=== PATIENT | male | born 1965 | race African-American/Black ===

== ENCOUNTER 2019-12-16 13:33 | Inpatient (IN) | payer OTHER ==
[2019-12-16] VITALS (7 sets, daily range): BP systolic 86–121; BP diastolic 41–62
[~2019-12-16] VITALS: Ht 177.8 cm; Wt 69.9 kg
--- NOTE | 2019-12-16 13:43 | NUR ---
PT BIB [facility] C/O ALTERED AND REFUSING DIALYSIS X 3 DAYS, PT IS AAOX1, NOT IN RESPIRATORY DISTRESS, HOOKED TO LAUNCH LEADER, KEPT RESTED AND COMFORTABLE, WILL CONTINUE TO MONITOR.
--- NOTE | 2019-12-16 14:00 | NUR ---
IV LINE ESTABLISHED, BLOOD DRAWN AND SENT TO LAB.
--- NOTE | 2019-12-16 14:10 | NUR ---
SEEN AND EXAMINED BY .
[2019-12-16] MEDS ORDERED: ONDANSETRON HCL/PF 4 MG/2 ML VIAL ONE (14:20)
--- NOTE | 2019-12-16 14:28 | NUR ---
ORGANIZATIONAL DEVELOPMENT DIRECTOR AT BEDSIDE FOR XRAY.
[2019-12-16] MEDS ORDERED: ONDANSETRON HCL/PF 4 MG/2 ML VIAL IVP ONE (14:30)
[2019-12-16 14:39] LABS: BASOPHILS # (AUTO) 0.1 /CMM (0.0-0.2); BASOPHILS % (AUTO) 0.4 % (0.0-2.0); EOSINOPHILS % (AUTO) 0.1 % (0.0-6.0); HEMATOCRIT 34 % (39-51); HEMOGLOBIN 10.3 g/dL (13.5-17.5); LYMPHOCYTES % (AUTO) 7.7 % (20.0-44.0); MEAN CORPUSCULAR HGB CONC 30 g/dl (31.0-36.0); MEAN CORPUSCULAR VOLUME 74 fL (80-96); MONOCYTES # (AUTO) 1.2 /CMM (0.1-1.30); MONOCYTES % (AUTO) 9.6 % (2.0-12.0); NEUTROPHILS # (AUTO) 10.5 /CMM (1.8-8.9); NEUTROPHILS % (AUTO) 82.2 % (43.0-81.0); PLATELET COUNT (AUTO) 211 /CMM (150-450); RED BLOOD CELL COUNT(AUTO) 4.61 MIL/uL (4.5-6.0); WHITE BLOOD COUNT (AUTO) 12.8 K/uL (4.3-11.0)
[2019-12-16 14:52] LABS: ALBUMIN 3.3 g/dL (3.4-5.0); BILIRUBIN,DIRECT 0.3 mg/dL (0.0-0.2); BILIRUBIN,TOTAL 0.6 mg/dL (0.2-1.0); TOTAL PROTEIN, SERUM 8.5 g/dL (6.4-8.2)
[2019-12-16 14:58] LABS: CREATININE 21.3 mg/dL (0.6-1.3); POTASSIUM 6.4 mmol/L (3.5-5.1)
[2019-12-16] MEDS ORDERED: SODIUM BICARBONATE SYR 50 MEQ/50 ML DISP.SYRIN IV ONE (15:00)
[2019-12-16] MEDS ORDERED: CALCIUM CHLORIDE 1,000 MG/10 ML DISP.SYRIN IV ONE (15:00)
[2019-12-16] MEDS ORDERED: ALBUTEROL FS 2.5 MG/3 ML VIAL.NEB NEB ONE (15:00)
[2019-12-16] MEDS ORDERED: ACETAMINOPHEN 650 MG/SUPP.RECT RC ONE ×3 (15:13→15:30)
[2019-12-16] MEDS ORDERED: CALCIUM CHLORIDE 1,000 MG/10 ML DISP.SYRIN ONE (15:15)
--- NOTE | 2019-12-16 15:26 | NUR ---
CALLED [facility]. [facility] GROOM WAS PAGED
[2019-12-16] MEDS ORDERED: PIPERACILLIN /TAZOBACTAM 3.375 G in IV D5W 50 ML IV ONE (15:30)
[2019-12-16] MEDS ORDERED: VANCOMYCIN 1 GM in IV D5W 250 ML IV ONE (15:30)
[2019-12-16] MEDS ORDERED: IV NS 0.9% 500 ML BAG IV ONE (15:30)
[2019-12-16] MEDS ORDERED: ALBUTEROL FS 2.5 MG/3 ML VIAL.NEB ONE (15:32)
--- NOTE | 2019-12-16 15:37 | NUR ---
CALLED DR MALLORY FOR CONSULT
[2019-12-16] MEDS ORDERED: PANT40TA2 PO (15:42)
[2019-12-16] MEDS ORDERED: ASCO500T9 PO (15:42)
[2019-12-16] MEDS ORDERED: GLUC1KIT IM (15:42)
[2019-12-16] MEDS ORDERED: GABA-532 PO (15:42)
[2019-12-16] MEDS ORDERED: SEVE800T8 PO (15:42)
[2019-12-16] MEDS ORDERED: DOCU-141 PO (15:42)
[2019-12-16] MEDS ORDERED: TRAM50TA2 PO (15:42)
[2019-12-16] MEDS ORDERED: PENT400T17 PO (15:42)
[2019-12-16] MEDS ORDERED: HYDR4TAB4 PO (15:42)
[2019-12-16] MEDS ORDERED: INSU100I4 SQ (15:42)
[2019-12-16] MEDS ORDERED: ACET-868 PO (15:42)
[2019-12-16] MEDS ORDERED: METO25TA20 PO (15:42)
[2019-12-16] MEDS ORDERED: INSU100I19 SQ (15:42)
[2019-12-16] MEDS ORDERED: FOLI0.8T2 PO (15:42)
[2019-12-16] MEDS ORDERED: ASPI-1152 PO (15:42)
[2019-12-16] MEDS ORDERED: ACET-2605 PO ×2 (15:42)
[2019-12-16] MEDS ORDERED: SITA50TA PO (15:42)
[2019-12-16] MEDS ORDERED: LISI-603 PO (15:42)
[2019-12-16] MEDS ORDERED: POLY17PO4 PO (15:42)
[2019-12-16] MEDS ORDERED: ZINC1CAP2 PO (15:42)
[2019-12-16] MEDS ORDERED: FURO-144 PO (15:42)
[2019-12-16] MEDS ORDERED: NA P133E RC (15:42)
[2019-12-16] MEDS ORDERED: BISA10SU11 RC (15:42)
[2019-12-16 15:48] LABS: BAND % (MANUAL) 13 % (0.0-5.0); LYMPHOCYTES % (MANUAL) 10 % (16-48); MONOCYTES % (MANUAL) 6 % (0-11.0); MYELOCYTES % 1 % (0-0); NEUTROPHILS % (MANUAL) 70 (42-76)
--- NOTE | 2019-12-16 15:51 | NUR ---
CALLED [facility] FOR BED
--- NOTE | 2019-12-16 16:58 | NUR ---
CALLED FOR ICU BED
[2019-12-16] MEDS ORDERED: ACETAMINOPHEN 325 MG TABLET PO PRN (17:00)
[2019-12-16] MEDS: METOPROLOL TARTRATE 25 MG TABLET PO SCH (17:00)
[2019-12-16] MEDS ORDERED: ZOLPIDEM TARTRATE 5 MG TABLET PO PRN (17:00)
[2019-12-16] MEDS ORDERED: BISACODYL SUPP (10 MG) 10 MG/SUPP.RECT SUPP.RECT RC PRN (17:00)
[2019-12-16] MEDS: SEVELAMER CARBONATE 800 MG TABLET PO SCH (17:00)
[2019-12-16] MEDS ORDERED: NA PHOS,M-B/NA PHOS,DI-BA 1 EA ENEMA RC PRN (17:00)
[2019-12-16] MEDS ORDERED: MAG HYDROX/AL HYDROX/SIMETH 30 ML UDC PO PRN (17:00)
[2019-12-16] MEDS ORDERED: Z GUARD REMEDY 2 OZ OINT TP PRN (17:00)
[2019-12-16] MEDS ORDERED: MAGNESIUM HYDROXIDE 30 ML UDC PO PRN (17:00)
[2019-12-16] MEDS ORDERED: ONDANSETRON HCL/PF 4 MG/2 ML VIAL IVP PRN (17:00)
[2019-12-16] MEDS ORDERED: TRAMADOL HCL 50 MG TABLET PO PRN (17:00)
--- NOTE | 2019-12-16 17:33 | NUR ---
REPORT GIVEN TO NEDA HOOK FOR LIAN.
--- NOTE | 2019-12-16 17:40 | NUR ---
OFFICE PROFESSIONALINTERMODAL OWNER OPERATOR TRUCK DRIVER NOTE RECEIVED REPORT FROM ER NURSE BLAKE.PATIENT ADMITTING TO ICU FOR [facility] SEPSIS .PATIENT RECEIVED VIA GURNEY.AXOX1 WITH CONFUSION.ON ROOM AIR SATURATING LOW 90'S AND HIGH 80'S.PLACED ON O2 4L VIA NASAL CANULA.SATURATING 98%.IV ON RAC ,RU CHEST HD CATH.DEMIAN AV FISTULA.VERY WEAK BRUIT.SUPRAPUBIC SPRING CATH DRAINING WELL.NO C/O CHEST PAIN.ON TELE MONITOR ST HR 118.BED IS LOW AND LOW POSITION. CALL LIGHT IN REACH.BED ALARM ON.SRX3.WILL CONTINUE TO MONITOR.
[2019-12-16] MEDS ORDERED: FEE PK DOSING 1 MIN EA MC ONE (17:53)
--- NOTE | 2019-12-16 18:15 | NUR ---
WAFER CUTTER NOTE FAXED HEPARIN [facility] PROTOCOL TO PHARMACY.SPOKE TO BOWEN.VERIFIED.TO START BOLUS ONCE DRIP HERE.
[2019-12-16] MEDS: GABAPENTIN 100 MG CAPSULE PO SCH (18:25)
[2019-12-16] MEDS: ASCORBIC ACID 500 MG TABLET PO SCH (18:25)
[2019-12-16] MEDS: BLOOD SUGAR DIAGNOSTIC 1 EACH STRIP VI SCH (18:27)
[2019-12-16] MEDS ORDERED: HEPARIN SODIUM, PORCINE 5000 UNITS/1 ML VIAL IV ONE (19:00)
--- NOTE | 2019-12-16 19:10 | NUR ---
HYDRAULIC LIFT DRIVER CLOSING NOTE ENDORSED TO PM [id number] FOR LIAN.VITAL SIGNS STABLE.TO START HEPARIN DRIP.
[2019-12-16] MEDS: HEPARIN INFUSION/D5W 500 ML IV PRN (19:59)
--- NOTE | 2019-12-16 20:00 | NUR ---
INITIAL ECHOCARDIOGRAM SHOWED EF 30%~. INFORMED RN OF PRELIMINARY RESULTS.
[2019-12-16] MEDS: INSULIN GLARGINE, 100 UNIT/ML CARTRIDGE SQ SCH (21:00)
[2019-12-17] VITALS (32 sets, daily range): BP systolic 80–188; BP diastolic 34–135
--- NOTE | 2019-12-17 00:30 | NUR ---
ICU/RN IRIS GALLAGHER ABOUT PATIENT LOW BP AT 75/61 DR ORDERED 250ML IV BOLUS TO BE GIVEN WILL ADMINISTER AND WILL CONTINUE TO MONITOR
[2019-12-17] MEDS ORDERED: IV NS 0.9% 250 ML IV ONE (01:00)
[2019-12-17] MEDS: PIPERACILLIN /TAZOBACTAM 2.25 G in IV D5W 50 ML IV SCH ×3 (01:28→15:06)
[2019-12-17] MEDS: ACETAMINOPHEN 325 MG TABLET PO PRN ×2 (01:29→12:35)
[2019-12-17] MEDS: DOCUSATE SODIUM 100 MG CAPSULE PO SCH ×2 (01:29→22:22)
[2019-12-17] MEDS: BLOOD SUGAR DIAGNOSTIC 1 EACH STRIP VI SCH ×5 (01:39→22:22)
[2019-12-17 02:53] LABS: BASOPHILS # (AUTO) 0.1 /CMM (0.0-0.2); BASOPHILS % (AUTO) 0.6 % (0.0-2.0); EOSINOPHILS % (AUTO) 0.2 % (0.0-6.0); HEMATOCRIT 29 % (39-51); HEMOGLOBIN 8.8 g/dL (13.5-17.5); LYMPHOCYTES # (AUTO) 1.1 /CMM (0.8-4.8); MEAN CORPUSCULAR HGB CONC 31 g/dl (31.0-36.0); MEAN CORPUSCULAR VOLUME 73 fL (80-96); MONOCYTES # (AUTO) 2.2 /CMM (0.1-1.30); MONOCYTES % (AUTO) 15.9 % (2.0-12.0); NEUTROPHILS # (AUTO) 10.5 /CMM (1.8-8.9); NEUTROPHILS % (AUTO) 75.3 % (43.0-81.0); PLATELET COUNT (AUTO) 182 /CMM (150-450); RED BLOOD CELL COUNT(AUTO) 3.91 MIL/uL (4.5-6.0)
[2019-12-17 03:02] LABS: CALCIUM, SERUM 9.8 mg/dL (8.5-10.1); PHOSPHORUS 5.8 mg/dL (2.5-4.9)
[2019-12-17 03:17] LABS: CREATININE 20.1 mg/dL (0.6-1.3); POTASSIUM 6.4 mmol/L (3.5-5.1)
[2019-12-17] MEDS ORDERED: SODIUM POLYSTYRENE SULFONATE 15 G/60 ML BOTTLE PO ONE (04:00)
--- NOTE | 2019-12-17 04:00 | NUR ---
ICU/NOTE PAIGED DR. GALLAGHER R&D LAB TECHNICIAN ABOUT CRITICAL LABS OF POTASSIUM OF 6.4. ORDERED 30MG OF KAYAXELATE. READ BACK PERFORMED. WILL CONTINUE TO MONITOR.
[2019-12-17] MEDS ORDERED: SODIUM POLYSTYRENE SULF. PWD 15 GM UDC PO ONE (04:30)
[2019-12-17 04:49] LABS: BAND % (MANUAL) 4 % (0.0-5.0); EOSINOPHILS % (MANUAL) 1 % (0-4); LYMPHOCYTES % (MANUAL) 12 % (16-48); MONOCYTES % (MANUAL) 7 % (0-11.0); NEUTROPHILS % (MANUAL) 76 (42-76)
[2019-12-17] MEDS ORDERED: SODIUM POLYSTYRENE SULFONATE 15 G/60 ML BOTTLE ONE (05:54)
--- NOTE | 2019-12-17 07:05 | NUR ---
ICU/RN PAIGED NEPHRO SPECIALIST. ANGELA PER DR. SWIFT STAT DIALYSIS ON PATIENT. AWAITING CALL BACK. WILL ENDORSE TO MORNING SHIFT NURSE.
--- NOTE | 2019-12-17 07:19 | NUR ---
ICU/NOTE SPOKE TO DR. DOUGHERTY, WILL CONSULT PATIENT FOR STAT DYALISIS.
--- NOTE | 2019-12-17 07:20 | NUR ---
ICU/RN RECEIVED PATIENT A/O X2. PATIENT IS ALERT AND ABLE TO STATE FIRST AND LAST NAME. PATIENT IS ON 4L OF O2 SATURATING AT 95% WITH NO COMPLAINT OF ANY SOB. PATIENT ON THE MONITOR SHOWS SINUS TACHY WITH NO DISTRESS. PATIENT HAS A RUCW ACCESS FOR HD WITH NO SIGN OF BLEEDING, AN MARINO FISTULA, AND A RAC #20 PATENT AND FLUSHED. PATIENT DOES NOT COMPLAIN OF ANY PAIN. PATIENT IS NON AMBULATORY. PATIENT IS TO START ON HEPARING DRIP PER ACS PROTOCOL STAT. ALL SAFETY PRECAUTIONS HAVE BEEN APPLIED. WILL CONTINUE TO MONITOR PATIENT THROUGHOUT SHIFT. Addendum: 12/17/19 at 0725 by ADRIAN SCHMITZ RN TIME ADJUSTED TO 12/16/19 AT 1925
--- NOTE | 2019-12-17 07:25 | NUR ---
ICU/RN CLOSING NOTE PATIENT IN BED WITH NO SIGN OF ANY DISTRESS, PATIENT IS A/O X3 ABLE TO STATE FIRST AND LAST NAME. PATIENT IS ON 4L OF O2 SATURATING AT 96%. PATIENT IS SINUS TACHY WITH HR IN THE 100'S. DOES NOT COMPLAIN OF ANY PAIN. PATIENT CONTINUES TO BE ON HEPARIN DRIP RUNNING AT 20ML (1000 UNITS)/HR PER ACS PROTOCOL. ALL SAFETY PRECAUTIONS APPLIED. ENDORSED PATIENT TO MORNING SHIFT NURSE FOR LIAN.
[2019-12-17] MEDS: PANTOPRAZOLE 40 MG TABLET.DR PO SCH (07:46)
[2019-12-17] MEDS: PENTOXIFYLLINE 400 MG TABLET.SA PO SCH (08:16)
[2019-12-17] MEDS: GABAPENTIN 100 MG CAPSULE PO SCH ×2 (08:16→17:09)
[2019-12-17] MEDS: POLYETHYLENE GLYCOL 3350 17 GM POWD.PACK PO SCH (08:16)
[2019-12-17] MEDS: SEVELAMER CARBONATE 800 MG TABLET PO SCH ×3 (08:16→17:09)
[2019-12-17] MEDS: VIT B CMPLX 3/FA/VIT C/BIOTIN 1 TAB TABLET PO SCH (08:16)
[2019-12-17] MEDS: LISINOPRIL (20MG) 20 MG TABLET PO SCH (08:17)
[2019-12-17] MEDS: ASPIRIN EC 81 MG TABLET.DR PO SCH (08:17)
[2019-12-17] MEDS: ZINC SULFATE 220 MG CAPSULE PO SCH (08:17)
[2019-12-17] MEDS: INSULIN GLARGINE, 100 UNIT/ML CARTRIDGE SQ SCH ×2 (08:18→22:23)
[2019-12-17] MEDS: METOPROLOL TARTRATE 25 MG TABLET PO SCH ×2 (08:18→17:13)
[2019-12-17] MEDS: ASCORBIC ACID 500 MG TABLET PO SCH ×2 (08:20→17:09)
[2019-12-17] MEDS ORDERED: FUROSEMIDE 40 MG TABLET PO SCH (09:00)
--- NOTE | 2019-12-17 09:28 | NUR ---
ICU/RN NOTES MEDICATION LANTUS WAS NOT GIVEN DUE TO BS OF 107. PATIENT CONTINUES TO REMAIN IN STABLE CONDITION. WILL CONTINUE TO MONITOR CLOSELY.
[2019-12-17] MEDS: INSULIN REGULAR, HUMAN 100 UNIT/ML 3 ML VIAL SQ PRN ×2 (11:55→17:14)
--- NOTE | 2019-12-17 15:40 | NUR ---
ICU/RN NOTES INFORMED DR. MG REGARDING PATIENT IS HAVING TEMP OF 102.2. TYLENOL PO AND COOLING MEASURES WAS ALREADY PROVIDED. WILL CONTINUE TO CHECK FREQUENTLY.
--- NOTE | 2019-12-17 16:00 | NUR ---
ICU/RN NOTES CHECKED THE TEMPERATURE OF THE PATIENT AND IT WAS 101.2 AT THIS TIME. ALSO RECEIVED A REPLY FROM DR. MG. WITH NO NEW ORDERS AT THIS TIME. WILL CONTINUE TO MONITOR CLOSELY.
[2019-12-17] MEDS ORDERED: VANCOMYCIN 1 GM in IV D5W 250 ML IV ONE (17:00)
[2019-12-17] MEDS: HEPARIN INFUSION/D5W 500 ML IV PRN (19:08)
--- NOTE | 2019-12-17 19:18 | NUR ---
ICU/RN CLOSING NOTES PATIENT CONTINUES TO REMAIN IN STABLE CONDITION THROUGHOUT THE SHIFT. PROVIDED SAFETY AND COMFORT. HOB ELEVATED AT ALL TIMES. ABLE TO TOLERATE MEALS AND MEDS WELL. NO ADVERSE REACTIONS AT THIS TIME. IV ACCESS INTACT AND PATENT. FLUSHING WELL. NO S/S OF INFECTION OR INFILTRATION. CONTINUES ON HEPARIN DRIP ON THE SAME DOSAGE. NEXT PTT AT 3@AM. LAST TEMP CHECKED WAS AT 99.1. ALL NEEDS ANTICIPATED. CALL LIGHT WITHIN REACHED. BED LOCKED AND IN LOWEST POSITION. SAFETY MAINTAINED. REPOSITIONED Q2HRS. ENDORSED TO PM NURSE FOR LIAN.
--- NOTE | 2019-12-17 19:45 | NUR ---
ICU/MECHANICAL ESTIMATOR RECEIVED REPORT FROM DAY NURSE. SEE NURSING FLOWSHEET FOR ASSESSMENT. THERE IS A FEW SKIN ISSUES WHICH ARE ADDRESSED ON THE FLOWSHEET ALONG WITH THE INTERVENTIONS. PT IS ALERT X2, WITH PERIODS OF CONFUSION. PT IS ON N/C AT 4.5 LITERS, WITH SATURATION AT 96-98% PT FREQUENTLY TAKES OF SENSOR TO OXYGEN DUE TO CONFUSION. NO ACUTE DISTRESS SEEN AT THIS TIME, PT WAS TURNED AND REPOSITIONED FOR COMFORT AND CARE WILL CONTINUE TO MONITOR THIS PT. PT ALSO HAS PERIODS OF RESTLESS BEHAVIOR.
--- NOTE | 2019-12-17 21:00 | NUR ---
ICU/SEPARATOR TENDER PT WAS GIVEN PM CARE. PT TOLERATED THIS WELL, SATURATION AT 96%. THEN PT WAS TUNED AND REPOSITIONED FOR COMFORT AND CARE. NO ACUTE DISTRESS SEEN AT THIS TIME, WILL CONTINUE TO MONITOR THIS PT. PT HAD LARGE SOFT BOWEL MOVEMENT.
[2019-12-18] VITALS (15 sets, daily range): BP systolic 88–128; BP diastolic 37–95
--- NOTE | 2019-12-18 | NUR ---
ICU/NETWORK SYSTEMS OPERATOR PT COMPLAINED ABOUT PAIN, RATED 10/10 TO GENERALIZED AREA OF BODY, GAVE DILAUDID 4MG PO FOR THIS PAIN. CALL LIGHT WITHIN REACH.
[2019-12-18] MEDS: HYDROMORPHONE HCL 2 MG TABLET PO PRN ×2 (00:06→23:00)
--- NOTE | 2019-12-18 01:00 | NUR ---
ICU/FUEL CELL BUILDER PT HAD LARGE SOFT BOWEL MOVEMENT.PT WAS TUNED AND REPOSITIONED FOR COMFORT AND CARE. NO ACUTE DISTRESS SEEN AT THIS TIME.
--- NOTE | 2019-12-18 07:00 | NUR ---
RN NOTE RECEIVED REPORT ON BED , A/Ox2, WITH PERIODS OF CONFUSION. ON 4L O2 N/C, NO SOB NOTED, PT TAKES OF SENSOR TO OXYGEN DUE TO CONFUSION. ON TELE SR-ST HR IN 100'S, AT THIS TIME, NO ACUTE DISTRESS SEEN AT THIS TIME, SUPRAPUBIC CATH INTACT AND DRINING , R UPPER CHEST HD CATH , R AC IV G 20 AND R HAND IV G22 SITES CLEAN, DRY AND INTACT, SR UP x3, CALL LIGHT WITHIN EASY REACH, BED ALARM ON FOR PT SAFETY, WILL CONTINUE TO MONITOR
[2019-12-18] MEDS: METOPROLOL TARTRATE 25 MG TABLET PO SCH ×2 (08:28→16:06)
[2019-12-18] MEDS: VIT B CMPLX 3/FA/VIT C/BIOTIN 1 TAB TABLET PO SCH (08:28)
[2019-12-18] MEDS: POLYETHYLENE GLYCOL 3350 17 GM POWD.PACK PO SCH (08:28)
[2019-12-18] MEDS: SEVELAMER CARBONATE 800 MG TABLET PO SCH ×3 (08:28→16:06)
[2019-12-18] MEDS: LISINOPRIL (20MG) 20 MG TABLET PO SCH (08:29)
[2019-12-18] MEDS: GABAPENTIN 100 MG CAPSULE PO SCH ×2 (08:29→16:06)
[2019-12-18] MEDS: ASCORBIC ACID 500 MG TABLET PO SCH ×2 (08:29→16:06)
[2019-12-18] MEDS: ZINC SULFATE 220 MG CAPSULE PO SCH (08:29)
[2019-12-18] MEDS: PANTOPRAZOLE 40 MG TABLET.DR PO SCH (08:29)
[2019-12-18] MEDS: ASPIRIN EC 81 MG TABLET.DR PO SCH (08:29)
[2019-12-18] MEDS: PENTOXIFYLLINE 400 MG TABLET.SA PO SCH (08:30)
[2019-12-18] MEDS: INSULIN GLARGINE, 100 UNIT/ML CARTRIDGE SQ SCH ×2 (08:32→21:00)
[2019-12-18] MEDS: INSULIN REGULAR, HUMAN 100 UNIT/ML 3 ML VIAL SQ PRN ×3 (08:33→17:25)
[2019-12-18] MEDS: PIPERACILLIN /TAZOBACTAM 2.25 G in IV D5W 50 ML IV SCH ×5 (08:34→23:00)
[2019-12-18] MEDS: BLOOD SUGAR DIAGNOSTIC 1 EACH STRIP VI SCH ×4 (08:34→21:17)
[2019-12-18 08:48] LABS: BASOPHILS # (AUTO) 0.2 /CMM (0.0-0.2); EOSINOPHILS % (AUTO) 0.8 % (0.0-6.0); HEMATOCRIT 29 % (39-51); HEMOGLOBIN 8.4 g/dL (13.5-17.5); LYMPHOCYTES # (AUTO) 1.2 /CMM (0.8-4.8); LYMPHOCYTES % (AUTO) 7.2 % (20.0-44.0); MEAN CORPUSCULAR HGB CONC 29 g/dl (31.0-36.0); MEAN CORPUSCULAR VOLUME 74 fL (80-96); MONOCYTES # (AUTO) 2.7 /CMM (0.1-1.30); MONOCYTES % (AUTO) 16.5 % (2.0-12.0); NEUTROPHILS # (AUTO) 12.1 /CMM (1.8-8.9); NEUTROPHILS % (AUTO) 74.5 % (43.0-81.0); PLATELET COUNT (AUTO) 191 /CMM (150-450); RED BLOOD CELL COUNT(AUTO) 3.87 MIL/uL (4.5-6.0); WHITE BLOOD COUNT (AUTO) 16.2 K/uL (4.3-11.0)
[2019-12-18 08:56] LABS: POTASSIUM 5.1 mmol/L (3.5-5.1)
[2019-12-18 09:02] LABS: CREATININE 14.9 mg/dL (0.6-1.3)
[2019-12-18] MEDS: HEPARIN SODIUM, PORCINE 5000 UNITS/1 ML VIAL SQ SCH ×2 (09:21→21:16)
--- NOTE | 2019-12-18 09:38 | NUR ---
RN NOTES REPORT GIVEN TO LAVELL RED FOR CONTINUITY OF CARE, PT TRANSFERRED TO ROOM 119-1 TELE STATUS VIA ACLS PROTOCOL IN STABLE CONDITION.
[2019-12-18 09:43] LABS: BAND % (MANUAL) 6 % (0.0-5.0); LYMPHOCYTES % (MANUAL) 5 % (16-48); MONOCYTES % (MANUAL) 16 % (0-11.0); NEUTROPHILS % (MANUAL) 73 (42-76)
--- NOTE | 2019-12-18 15:48 | NUR ---
RN NOTE PHARMACY CALLED REGARDING SCHEDULED 1600 DOSE OF VANCO, INFORMED BY PHARMACIST THAT VACUUM TECHNICIAN WILL BRING IT
--- NOTE | 2019-12-18 18:37 | NUR ---
RN CLOSING NOTE PT IN BED AT LOWEST AND LOCKED POSITION WITH SIDE RAILS UP X2, A/O X1-2 CONFUSED BREATHING EVEN AND UNLABORED ON 2L VIA NC, NO S/S OF ANY DISTRESS OR PAIN AT THIS TIME, IV IS PATENT AND INTACT, CURRENTLY RECEIVING DIALYSIS AT THIS TIME, SAFETY PRECAUTIONS IN PLACE, CALL LIGHT IN REACH, ALL NEEDS ATTENDED TO, WILL ENDORSE TO NIGHT RN FOR LIAN.
--- NOTE | 2019-12-18 19:10 | NUR ---
POLICY OFFICER NOTE RECEIVED PT IN STABLE CONDITION A/O 1-2, CURRENTLY HAVING DIALYSIS, PUMP AND STILL OPERATOR AT BEDSIDE. NO SIGNS OF SOB OR DISTRESS, NO INDICATION OF PAIN OR N/V. IV IN RAC #[address] SPRING IN PL[address] WITH MINIMAL OUTPUT. ALL CURRENT NEEDS ATTENDED TO. BED LOW, LOCKED, UPPER RAILS UP, AND CALL LIGHT WITHIN REACH. WILL CONT TO REPOSITION, AND MONITOR.
--- NOTE | 2019-12-18 21:00 | NUR ---
PLASTER MACHINE OPERATOR NOTE DIALYSIS FINISHED, PT TOLERATED WELL. 2L OUT.
[2019-12-18] MEDS: DOCUSATE SODIUM 100 MG CAPSULE PO SCH (21:17)
--- NOTE | 2019-12-18 21:18 | NUR ---
PUBLIC HEALTH TECHNOLOGIST NOTE PT NOTED WITH BLOOD SUGAR OF 91, 2100 DOSE OF LANTUS HELD. PT DID NOT EAT DINNER, AND NOT CURRENTLY HUNGRY. WILL CONT. TO MONITOR.
--- NOTE | 2019-12-18 22:46 | NUR ---
C CONSULTANT NOTE PT REFUSED WEEKLY WOUND DOCUMENTATION PHOTOS TO BE DONE. RISKS AND BENEFITS MADE AWARE WITH VERBALIZATION OF UNDERSTANDING.
--- NOTE | 2019-12-18 22:52 | NUR ---
DATA ENTRY PROCESSOR NOTE PT TRANSFERRED TO ROOM 117-1, REMAINS IN STABLE CONDITION
[2019-12-19] VITALS (9 sets, daily range): BP systolic 84–118; BP diastolic 40–88
[2019-12-19] MEDS ORDERED: VANCOMYCIN 1 GM VIAL ONE (00:37)
[2019-12-19] MEDS: VANCOMYCIN 500 MG in IV D5W 100 ML IV PRN (00:41)
--- NOTE | 2019-12-19 00:41 | NUR ---
DIPPER AND DRIER NOTE VANCO NOT FOUND IN PT CASSETTE, PULLED BY CHARGE AND CONSTITUTED.
--- NOTE | 2019-12-19 06:34 | NUR ---
CLOTH CUTTER NOTE PT REMAINS IN STABLE CONDITION A/O 1-2. NO SIGNS OF SOB OR DISTRESS, NO INDICATION OF PAIN OR N/V. IV IN RAC #[address] SPRING IN PLACE WITH MINIMAL OUTPUT. ALL CURRENT NEEDS ATTENDED TO. BED LOW, LOCKED, UPPER RAILS UP, AND CALL LIGHT WITHIN REACH. WILL CONT TO REPOSITION, AND MONITOR AND ENDORSE TO NEXT SHIFT FOR LIAN.
--- NOTE | 2019-12-19 07:00 | NUR ---
FORENSIC ANALYST NOTE RECEIVED PT AWAKE IN BED HOB ELEVATED. ON FC DRAINING CLEAR YELLOW URINE. PT IS RESPONSIVE. NO C/O PAIN OR DISCOMFORT. BREATHING UNLABORED. NOTED WITH DRESSING ON THE L.HEEL DRESSING IS SECURE AND OFFLOAD. CALL LIGHT WITHIN REACH. BED ON THE LOW SETTING AND LOCKED. WILL CONT TO MONITOR.
[2019-12-19] MEDS: BLOOD SUGAR DIAGNOSTIC 1 EACH STRIP VI SCH ×4 (08:18→21:57)
[2019-12-19] MEDS: *INSULIN REGULAR(HUMULIN R)HUM 100 UNIT/ML VIAL SQ PRN (08:20)
[2019-12-19] MEDS: POLYETHYLENE GLYCOL 3350 17 GM POWD.PACK PO SCH (08:22)
[2019-12-19] MEDS: ASPIRIN EC 81 MG TABLET.DR PO SCH (08:23)
[2019-12-19] MEDS: SEVELAMER CARBONATE 800 MG TABLET PO SCH ×3 (08:23→17:44)
[2019-12-19] MEDS: GABAPENTIN 100 MG CAPSULE PO SCH ×2 (08:23→17:44)
[2019-12-19] MEDS: METOPROLOL TARTRATE 25 MG TABLET PO SCH ×2 (08:28→17:00)
[2019-12-19] MEDS: VIT B CMPLX 3/FA/VIT C/BIOTIN 1 TAB TABLET PO SCH (08:29)
[2019-12-19] MEDS: ASCORBIC ACID 500 MG TABLET PO SCH ×2 (08:29→17:45)
[2019-12-19] MEDS: LISINOPRIL (20MG) 20 MG TABLET PO SCH (08:29)
[2019-12-19] MEDS: PANTOPRAZOLE 40 MG TABLET.DR PO SCH (08:29)
[2019-12-19] MEDS: PENTOXIFYLLINE 400 MG TABLET.SA PO SCH (08:29)
[2019-12-19] MEDS: ZINC SULFATE 220 MG CAPSULE PO SCH (08:29)
[2019-12-19] MEDS: HEPARIN SODIUM, PORCINE 5000 UNITS/1 ML VIAL SQ SCH ×2 (08:35→21:00)
[2019-12-19] MEDS: PIPERACILLIN /TAZOBACTAM 2.25 G in IV D5W 50 ML IV SCH ×3 (08:36→23:22)
[2019-12-19] MEDS: INSULIN GLARGINE, 100 UNIT/ML CARTRIDGE SQ SCH ×2 (08:37→21:00)
[2019-12-19] MEDS: INSULIN REGULAR, HUMAN 100 UNIT/ML 3 ML VIAL SQ PRN (12:36)
[2019-12-19 13:12] LABS: BASOPHILS # (AUTO) 0.1 /CMM (0.0-0.2); BASOPHILS % (AUTO) 0.6 % (0.0-2.0); EOSINOPHILS % (AUTO) 1.6 % (0.0-6.0); HEMATOCRIT 30 % (39-51); HEMOGLOBIN 9.1 g/dL (13.5-17.5); LYMPHOCYTES # (AUTO) 0.9 /CMM (0.8-4.8); MEAN CORPUSCULAR HGB CONC 30 g/dl (31.0-36.0); MEAN CORPUSCULAR VOLUME 74 fL (80-96); MONOCYTES # (AUTO) 2.3 /CMM (0.1-1.30); NEUTROPHILS # (AUTO) 11.6 /CMM (1.8-8.9); NEUTROPHILS % (AUTO) 76.8 % (43.0-81.0); PLATELET COUNT (AUTO) 205 /CMM (150-450); RED BLOOD CELL COUNT(AUTO) 4.11 MIL/uL (4.5-6.0); WHITE BLOOD COUNT (AUTO) 15.1 K/uL (4.3-11.0)
[2019-12-19 14:58] LABS: ALBUMIN 2.1 g/dL (3.4-5.0); BILIRUBIN,TOTAL 0.6 mg/dL (0.2-1.0); CALCIUM, SERUM 8.7 mg/dL (8.5-10.1); MAGNESIUM 2.2 mg/dL (1.8-2.4); PHOSPHORUS 3.7 mg/dL (2.5-4.9); POTASSIUM 4.2 mmol/L (3.5-5.1)
[2019-12-19 15:06] LABS: CREATININE 10.8 mg/dL (0.6-1.3)
--- NOTE | 2019-12-19 15:51 | NUR ---
TALEND DEVELOPER NOTE PT INITIALLY REFUSED VANCO TROUGH DRAW THIS MORNING. SPOKE TO PATIENT NOW AND ENCOURAGED TO GET BLOOD. PATIENT AGREED. CALLED LABS TO PERFORM BLOOD DRAW.
--- NOTE | 2019-12-19 19:10 | NUR ---
RN OPENING NOTES: Received pt awake in bed A&Ox1-2. On isolation for MRSA of blood. `On 4L/min NC tolerating well. No SOB or respiratory distress noted. On tele monitor showing SR. Has IV site on right hand, flushed and patent. Dressing c/d/i. Has right upper chest wall cath. Has supra cath, patent and draining urine. Noted w/ right heel ulcer. Denies any pain at this time. Safety measures in place. Bed in lowest and locked position, side rails up x3, call light w/in reach. Will continue to monitor.
[2019-12-19] MEDS: DOCUSATE SODIUM 100 MG CAPSULE PO SCH (21:57)
--- NOTE | 2019-12-19 21:58 | NUR ---
RN NOTE: Pt refused all 2100 and 2200 meds and accucheck. Explained risks and benefits x3 and continued to refuse. Charge nurse aware and attempted to educate pt as well and continued to refuse. Will continue to monitor.
[2019-12-20] VITALS: BP 93/69
[2019-12-20 04:00] VITALS: BP 93/43
--- NOTE | 2019-12-20 06:53 | NUR ---
RN CLOSING NOTES: Pt resting in bed A&0x1-2. on 4L/min NC tolerating well. No respiratory distress noted. No acute changes noted during shift. On tele monitor reading SR. Pt refused bedtime meds and accucheck but was ok with IV ATB. Has IV site on right hand, flushed and patent. Dressing c/d/i. Has right upper chest cath and left AVF. Has suprapubic cathether, patent and draining urine. No pain noted at this time. Safety measures in place. Bed in lowest and locked position, side rails up x3 and call light w/in reach. Will endorse to AM nurse for LIAN.
[2019-12-20 07:19] LABS: POTASSIUM 4.1 mmol/L (3.5-5.1)
[2019-12-20 07:37] LABS: BASOPHILS # (AUTO) 0.2 /CMM (0.0-0.2); BASOPHILS % (AUTO) 1.3 % (0.0-2.0); EOSINOPHILS % (AUTO) 2.8 % (0.0-6.0); HEMATOCRIT 31 % (39-51); HEMOGLOBIN 9.5 g/dL (13.5-17.5); LYMPHOCYTES # (AUTO) 1.4 /CMM (0.8-4.8); LYMPHOCYTES % (AUTO) 10.3 % (20.0-44.0); MEAN CORPUSCULAR HGB CONC 30 g/dl (31.0-36.0); MEAN CORPUSCULAR VOLUME 74 fL (80-96); MONOCYTES # (AUTO) 1.5 /CMM (0.1-1.30); MONOCYTES % (AUTO) 10.9 % (2.0-12.0); NEUTROPHILS # (AUTO) 10.4 /CMM (1.8-8.9); NEUTROPHILS % (AUTO) 74.7 % (43.0-81.0); PLATELET COUNT (AUTO) 256 /CMM (150-450); RED BLOOD CELL COUNT(AUTO) 4.25 MIL/uL (4.5-6.0); WHITE BLOOD COUNT (AUTO) 13.9 K/uL (4.3-11.0)
[2019-12-20 07:44] LABS: CREATININE 11.9 mg/dL (0.6-1.3)
[2019-12-20 08:00] VITALS: BP 106/45
--- NOTE | 2019-12-20 08:00 | NUR ---
ROOTER OPERATOR NOTES RECEIVED PATIENT IN BED ALERT ORIENTED, BS CHECKED -112MG/DL NO COVERAGE NEEDED AT THIS TIME. NEW HL 20G RIGHT FA IN PLACED. NO SOB NOTED. PATIENT HAS IV INTACT FLUSHED WELL. ON TELE MONITORING HR-87 SR. TAKING TO CTA. PLAN OF CARE DISCUSSED WITH THE PATIENT . BED IN LOCKED AND LOWEST POSITION. CALL LIGHT WITHIN REACH. WILL CONT TO MONITOR.
[2019-12-20] MEDS ORDERED: IOHEXOL-350 100 ML VIAL IV ONE ×2 (08:55→10:41)
[2019-12-20] MEDS ORDERED: IV NS 0.9% 250 ML IV ONE ×2 (08:55→10:41)
[2019-12-20] MEDS: SEVELAMER CARBONATE 800 MG TABLET PO SCH ×3 (09:00→16:08)
[2019-12-20] MEDS: VIT B CMPLX 3/FA/VIT C/BIOTIN 1 TAB TABLET PO SCH (09:00)
[2019-12-20] MEDS: LISINOPRIL (20MG) 20 MG TABLET PO SCH (09:00)
[2019-12-20] MEDS: POLYETHYLENE GLYCOL 3350 17 GM POWD.PACK PO SCH (09:00)
[2019-12-20] MEDS: METOPROLOL TARTRATE 25 MG TABLET PO SCH ×2 (09:00→17:00)
[2019-12-20] MEDS: INSULIN GLARGINE, 100 UNIT/ML CARTRIDGE SQ SCH ×2 (09:00→21:30)
--- NOTE | 2019-12-20 09:00 | NUR ---
television maintenance worker note unable to give po meds patient out off unit at this time doing cta , also nitro was not given by cta nurse
--- NOTE | 2019-12-20 09:00 | NUR ---
SENIOR CAREGIVER NOTE UNABLE TO GIVE PO MEDS PATIENT WENT TO CTA
[2019-12-20] MEDS ORDERED: NITROGLYCERIN 0.4 MG/TAB BOTTLE ONE (09:22)
[2019-12-20] MEDS ORDERED: METOPROLOL TARTRATE INJ 5 MG/5 ML AMPUL ONE (09:22)
[2019-12-20] MEDS: METOPROLOL TARTRATE INJ 5 MG/5 ML AMPUL IVP PRN ×5 (09:26→09:46)
[2019-12-20] MEDS ORDERED: IV NS 0.9% 500 ML IV PRN (09:30)
[2019-12-20] MEDS ORDERED: NITROGLYCERIN 0.4 MG/TAB BOTTLE SL ONE (09:30)
[2019-12-20] MEDS ORDERED: IV NS 0.9% 500 ML IV ONE (09:49)
--- NOTE | 2019-12-20 11:05 | NUR ---
CTA heart completed. pt had total of Metoprolol 5mg IVPx5 given. BP dropped tp systolic 50's, Given NS 250 ml IV bolus. g 20 IV cath also infiltrated during CTA cpntracst injection. new IV gauge 15 inserted AC . pt tolerated procedure. sent to floor via bed. report given to Samina RED Addendum: 12/20/19 at 1127 by SHANICE NAIK RN late entry at 0900. pt wheeled to CT room for CTA heart. Consent verified. G 20 on R upper forearm patent and intact.positioned comfortably.total of Metoprolol 5mg IVPx5 given. BP dropped to Systolic 50s prior to actual contrast injection, NS 250 ml IV bolus given. BP improved. During actual contrast injection G20 IV infiltrated. arm elevated and cold compress applied per PP . Pt agreeable to complete procedure. new G 18 on R AC inserted. CTA heart completed , VSS, sent to floor via bed. report given to Luis Carlos RED. Samina informed of above events and techniques to observe to relieve R upper arm IV infiltration
[2019-12-20] MEDS: PANTOPRAZOLE 40 MG TABLET.DR PO SCH (11:31)
[2019-12-20] MEDS: GABAPENTIN 100 MG CAPSULE PO SCH ×2 (11:31→16:08)
[2019-12-20] MEDS: ASPIRIN EC 81 MG TABLET.DR PO SCH (11:31)
[2019-12-20] MEDS: ASCORBIC ACID 500 MG TABLET PO SCH ×2 (11:32→16:08)
[2019-12-20] MEDS: ZINC SULFATE 220 MG CAPSULE PO SCH (11:38)
[2019-12-20] MEDS: PENTOXIFYLLINE 400 MG TABLET.SA PO SCH (11:38)
[2019-12-20] MEDS: HEPARIN SODIUM, PORCINE 5000 UNITS/1 ML VIAL SQ SCH ×2 (11:38→21:30)
[2019-12-20] MEDS: HYDROMORPHONE HCL 2 MG TABLET PO PRN (11:40)
[2019-12-20] MEDS: BLOOD SUGAR DIAGNOSTIC 1 EACH STRIP VI SCH ×4 (11:49→22:50)
[2019-12-20] MEDS: PIPERACILLIN /TAZOBACTAM 2.25 G in IV D5W 50 ML IV SCH ×2 (11:55→15:48)
[2019-12-20 12:00] VITALS: BP_SYST 103; BP_DIAS 32; BP_DIAS 42
--- NOTE | 2019-12-20 12:05 | NUR ---
telecommunications cable jointer note back from cta alert oriented ,placed back to 02 c\o severe back pain Dilaudid 4 mg po given will.f\u
--- NOTE | 2019-12-20 12:05 | NUR ---
telecommunication engineer note rt arm is swollen when back from cta ,ice pack applied and keep elevated as tolerated
--- NOTE | 2019-12-20 12:25 | NUR ---
telephone sales agent note seen by dr mccurdy aware that troponin is 0.19 also aware that hd will be done per dr medrano head of art
--- NOTE | 2019-12-20 14:38 | NUR ---
senior telecommunications engineer note called to dr medrano [employer] dean about hd order will await for return call
--- NOTE | 2019-12-20 15:00 | NUR ---
CONTINUOUS MINER OPERATOR NOTE CALLED TO DR KATZ ABOUT HD AFTER CTA WILL AWAIT FOR RETURN CALL
--- NOTE | 2019-12-20 15:10 | NUR ---
RN NOTES PATIENT SIGNED CONSENT FOR TOMORROW FOR CT ANGIO AND STENT PLACEMENT.
[2019-12-20 16:00] VITALS: BP_SYST 99; BP_DIAS 32; BP_DIAS 35
[2019-12-20] MEDS: NYSTATIN (PYXIS) 500,000 UNIT/5 ML ORAL.SUSP PO SCH (17:10)
[2019-12-20] MEDS: INSULIN REGULAR, HUMAN 100 UNIT/ML 3 ML VIAL SQ PRN (17:35)
--- NOTE | 2019-12-20 17:43 | NUR ---
INFORMATION ASSISTANT NOTE SPOKE WITH JOVITA HD NURSE AWARE ABOUT HD STATED WILL BE DONE TOMORROW HD
--- NOTE | 2019-12-20 18:34 | NUR ---
RN NOTES DR. KATZ NOTIFIED PATIENT HAS CTA TODAY AND TOMORROW CTA WITH STENT PLACEMENT STATED WILL DO HEMODIALYSIS TOMORROW. WILL COORDINATE TOMORROW.
--- NOTE | 2019-12-20 18:48 | NUR ---
RN NOTES PATIENT IN STABLE CONDITION RESTING COMFORTABLY. NO SOB NOTED. VITAL SIGNS WNL. BREATHING NORMAL. SAFETY MEASURES IN PLACE. CALL LIGHT WITHIN REACH. BED IN LOW AND LOCKED POSITION. WILL ENDORSE PATIENT TO NIGHT NURSE.
--- NOTE | 2019-12-20 19:05 | NUR ---
RN NOTES UA COLLECTED ORDERED.
--- NOTE | 2019-12-20 19:59 | NUR ---
TELE/RN OPENING NOTE RECEIVED PATIENT IN BED CURRENTLY WITH NO SIGN OF ANY DISTRESS. PATIENT IS ABLE TO STATE FIRST AND LAST NAME. NO SIGN OF DISTRESS AT THE MOMENT. PATIENT IS ON 4L OF 02 ON NASAL CANNULA. PATIENT ON THE MONITOR WITH NSR WITH BB BLOCK. PATIENT HAS A RIGHT HAND #22 PATENT AND FLUSHING AND RIGHT UPPER CHEST HD CATH AND AN AV FISTULA NON-WORKABLE. ALL SAFETY PRECAUTIONS HAVE BEEN APPLIED. WILL CONTINUE TO MONITOR PATIENT THROUGHOUT SHIFT.
[2019-12-20 20:00] VITALS: BP 104/41
[2019-12-20 21:44] LABS: APPEARANCE,URINE SL CLOUDY (CLEAR); BILIRUBIN,URINE NEGATIVE (NEGATIVE); BLOOD, URINE MODERATE Ery/uL (NEGATIVE); COLOR,URINE YELLOW (YELLOW); KETONES,URINE NEGATIVE (NEGATIVE); LEUKOCYTE ESTERASE ,URINE MODERATE (NEGATIVE); NITRITE, URINE NEGATIVE (NEGATIVE); PH,URINE 7.5 (5.0-8.0); PROTEIN,URINE 100 mg/dl (NEGATIVE); UGLUCOSE NEGATIVE (NEGATIVE); UROBILINOGEN,URINE 0.2 EU/dL (0.2)
[2019-12-20 21:52] LABS: BACTERIA,URINE 4+ /HPF (None Seen); MUCUS,URINE Many /LPF (None Seen); RBC,URINE 51-80 /HPF (0-2); SQUAMOUS EPITHELIAL CELL,UR Few /HPF (None Seen); URINE AMORPHOUS PHOSPHATES Many /HPF (None Seen); WBC,URINE TOO NUMEROUS TO COUN /HPF (0-3)
[2019-12-20] MEDS: DOCUSATE SODIUM 100 MG CAPSULE PO SCH (22:40)
[2019-12-21] VITALS (31 sets, daily range): BP systolic 73–153; BP diastolic 12–119
[2019-12-21] MEDS: HYDROMORPHONE HCL 2 MG TABLET PO PRN
[2019-12-21] MEDS: PIPERACILLIN /TAZOBACTAM 2.25 G in IV D5W 50 ML IV SCH ×3 (00:41→15:56)
[2019-12-21] MEDS ORDERED: IODIXANOL 150 ML IV ONE (05:59)
[2019-12-21] MEDS ORDERED: VERAPAMIL HCL IV 5 MG/2 ML VIAL ONE (06:08)
[2019-12-21] MEDS ORDERED: HEPARIN SODIUM, PORCINE 1,000 UNIT/ML VIAL ONE ×2 (06:09→07:37)
[2019-12-21] MEDS ORDERED: NITROGLYCERIN ICAR 1,000 MCG/10 ML VIAL ICAR ONE (06:09)
[2019-12-21] MEDS ORDERED: IV NS 0.9% 1,000 ML ONE (06:19)
[2019-12-21] MEDS ORDERED: IV SET PRIMARY PUMP SET 1 EA INFUS.SET MC ONE (06:19)
[2019-12-21] MEDS ORDERED: FENTANYL PF 100MCG/2ML AMPUL ONE (06:27)
[2019-12-21] MEDS ORDERED: MIDAZOLAM HCL 2 MG/2ML VIAL ONE (06:27)
--- NOTE | 2019-12-21 07:00 | NUR ---
ACCOUNT COORDINATOR - OPENING NOTES RECEIVED PATIENT IN BED CURRENTLY WITH NO SIGN OF ANY DISTRESS. PATIENT IS ABLE TO STATE FIRST AND LAST NAME. NO SIGN OF DISTRESS AT THE MOMENT. PATIENT IS ON 4L OF 02 ON NASAL CANNULA. PATIENT ON THE MONITOR WITH NSR WITH BB BLOCK. PATIENT HAS A RIGHT HAND #22 PATENT AND FLUSHING AND RIGHT UPPER CHEST HD CATH AND AN AV FISTULA NON-WORKABLE LIGHT THRILL . ALL SAFETY PRECAUTIONS HAVE BEEN APPLIED. WILL CONTINUE TO MONITOR PATIENT THROUGHOUT SHIFT.
[2019-12-21] MEDS ORDERED: LIDOCAINE HCL/PF 1% 30 ML SDV ONE (07:35)
[2019-12-21 07:36] LABS: CALCIUM, SERUM 8.5 mg/dL (8.5-10.1); POTASSIUM 4.6 mmol/L (3.5-5.1)
[2019-12-21 07:42] LABS: CREATININE 13.6 mg/dL (0.6-1.3)
--- NOTE | 2019-12-21 07:53 | NUR ---
FORENSIC LOCKSMITH CLOSING NOTE PATIENT WAS TAKEN TO LEARNING AND DEVELOPMENT MANAGER FOR PROCEDURE NO SIGN OF ANY DISTRESS. ON 4L 0F O2. REPORT GIVEN TO MORNING SHIFT NURSE FOT CONTINUATION OF CARE.
[2019-12-21] MEDS: METOPROLOL TARTRATE 25 MG TABLET PO SCH ×2 (09:00→17:00)
[2019-12-21] MEDS: HEPARIN SODIUM, PORCINE 5000 UNITS/1 ML VIAL SQ SCH ×2 (09:00→21:00)
[2019-12-21] MEDS: LISINOPRIL (20MG) 20 MG TABLET PO SCH (09:00)
--- NOTE | 2019-12-21 09:30 | NUR ---
ICU/RN: RECEIVED PT S/P CARDIAC CATH. PT HAD RIGHT FEMORAL CARDIAC CATH. DRESSING CLEAN, DRY AND INTACT, NO S/S OF BLEEDING NOTED. PULSES PRESENT AND PALPABLE. LOWER EXTREMITY PULSES ASSESSED WITH DOPPLER. PT ALERT, AWAKE, FOLLOWS COMMANDS. PT DROWSY. PT ON TELE, SINUS, HR 80S. SUPRAPUBIC SPRING CATH IN PLACE DRAINING MINIMAL URINE. PT IS SCHEDULED TO HAVE HD TODAY. PIV PATENT AND INTACT, NO S/S OF INFECTION OR INFILTRATION NOTED. ALL NEEDS WILL BE ATTENDED TO, SAFETY MEASURES TAKEN, BED IN LOW POSITION, SIDE RAILS UP, CALL LIGHT WITHIN REACH. WILL CONTINUE TO MONITOR. PER MD PT IS TO BE TRANSFERRED OUT FOR CABG, CASE MANAGEMENT WORKING ON TRANSFER.
--- NOTE | 2019-12-21 09:41 | NUR ---
HOTEL CASINO FLOORPERSON - TRANSFER ICU PATIENT TRANSFERRED TO ICU REPORT GIVEN TO FLORESITA
[2019-12-21] MEDS: PANTOPRAZOLE 40 MG TABLET.DR PO SCH (10:27)
[2019-12-21] MEDS: BLOOD SUGAR DIAGNOSTIC 1 EACH STRIP VI SCH ×4 (10:27→22:35)
[2019-12-21] MEDS: GABAPENTIN 100 MG CAPSULE PO SCH ×2 (10:28→16:56)
[2019-12-21] MEDS: SEVELAMER CARBONATE 800 MG TABLET PO SCH ×3 (10:28→16:54)
[2019-12-21] MEDS: ASPIRIN EC 81 MG TABLET.DR PO SCH (10:28)
[2019-12-21] MEDS: ASCORBIC ACID 500 MG TABLET PO SCH ×2 (10:29→16:56)
[2019-12-21] MEDS: VIT B CMPLX 3/FA/VIT C/BIOTIN 1 TAB TABLET PO SCH (10:29)
[2019-12-21] MEDS: NYSTATIN (PYXIS) 500,000 UNIT/5 ML ORAL.SUSP PO SCH ×3 (10:29→16:56)
[2019-12-21] MEDS: POLYETHYLENE GLYCOL 3350 17 GM POWD.PACK PO SCH (10:29)
[2019-12-21] MEDS: PENTOXIFYLLINE 400 MG TABLET.SA PO SCH (10:34)
[2019-12-21] MEDS: *INSULIN REGULAR(HUMULIN R)HUM 100 UNIT/ML VIAL SQ PRN ×2 (10:34→12:33)
[2019-12-21] MEDS: INSULIN GLARGINE, 100 UNIT/ML CARTRIDGE SQ SCH ×2 (10:36→21:00)
[2019-12-21] MEDS: ZINC SULFATE 220 MG CAPSULE PO SCH (10:37)
--- NOTE | 2019-12-21 18:45 | NUR ---
ICU/RN: HD STARTED, WILL CONTINUE TO MONITOR VSS
--- NOTE | 2019-12-21 19:35 | NUR ---
PROPOSAL REVIEW ANALYST NOTES, RECEIVED PATIENT FOR LIAN, PATIENT IN BED SLEEP AT THIS TIME, BUT RESPONSIVE TO VERBAL STIMULI, S/P RIGHT FEMORAL CARDIAC CATH, NO ABNORMALITIES NOTED, NO S/S OF BLEEDING NOTED, PULSES PRESENT AND PALPABLE, LOWER EXTREMITY PULSES ASSESSED WITH DOPPLER, RECEIVING HEMODIALYSIS AT THIS TIME, SINUS TACHY WITH HR 101 IN TELEMONITOR, SUPRAPUBIC SPRING CATH IN PLACE, NO URINE NOTED AT THIS TIME, RIGHT AC/HAND IV ACCESS PATENT AND INTACT, PATIENT DENIES CHEST PAIN AT THIS TIME, ALL SAFETY MEASURES IN PLACED, WELL ISOLATION, BED LOCKED AND LOW POSITION, SIDE RAILS UP, CALL LIGHT WITHIN REACH, WILL CONTINUE TO MONITOR CLOSELY, AWAITING TO BE TRANSFER FOR CABG TO AN HIGHER LEVEL OF CARE HOSPITAL, YUKO IN THE CASE.
--- NOTE | 2019-12-21 19:39 | NUR ---
ICU/RN: ENDING NOTES,AM BEDSIDE REPORT ENDORSED TO NIGHT NURSE FOR LIAN. HD ONGOING ON THIS TIME. ENDORSED TO RN TO ADMINISTER PRN VANCO POST HD. PT RESTING IN BED, ALERT, NO DISTRESS NOTED. SINUS ON TELE. VSS. ALL NEEDS ATTENDED TO. RIGHT FEMORAL NO S/S OF BLEEDING NOTED, PULSES ALL PRESENT AND PALPABLE. SAFETY MEASURES TAKEN, BED IN LOW AND LOCKED POSITION, SIDE RAILS UP, CALL LIGHT WITHIN REACH, BED BATH GIVEN.
--- NOTE | 2019-12-21 21:00 | NUR ---
RN NOTES, DONE WITH HD AT THIS ITME, PATIENT TOLERATED WELL, 200ML OUT, VS 89/66, 116, 20, 96%, WILL CONTINUE TO MONITOR CLOSELY.
[2019-12-21] MEDS: VANCOMYCIN 500 MG in IV D5W 100 ML IV PRN (21:44)
[2019-12-21] MEDS: ATORVASTATIN 40 MG TABLET PO SCH (21:44)
[2019-12-21] MEDS: DOCUSATE SODIUM 100 MG CAPSULE PO SCH (21:44)
--- NOTE | 2019-12-21 22:38 | NUR ---
RN NOTES, PATIENT REFUSED LANTUS ADMINISTRATION, NO COVERAGE PER SLIDING SCALE, BLOOD SUGAR 113MG/dL.
[2019-12-22] VITALS (39 sets, daily range): BP systolic 87–147; BP diastolic 37–85
[2019-12-22] MEDS: PIPERACILLIN /TAZOBACTAM 2.25 G in IV D5W 50 ML IV SCH ×4 (00:50→23:17)
[2019-12-22 04:53] LABS: CALCIUM, SERUM 9.2 mg/dL (8.5-10.1); POTASSIUM 4.8 mmol/L (3.5-5.1)
[2019-12-22 04:54] LABS: CREATININE 9.8 mg/dL (0.6-1.3)
--- NOTE | 2019-12-22 07:20 | NUR ---
TEARER PRESS CLIPPING NOTES, PATIENT IN BED AWAKE AT THIS TIME, A/O X4, ABLE TO VERBALIZED NEEDS AND CONCERNS, NORMAL SINUS IN TELEMONITOR AT THIS TIME WITH HR 89, PATIENT DENIES CHEST PAIN AT THIS TIME,NO SIGNIFICANT CHANGE IN CONDITION DURING THE NIGHT, ALL SAFETY MEASURES IN PLACED, WELL ISOLATION, BED LOCKED AND LOW POSITION, SIDE RAILS UP, CALL LIGHT WITHIN REACH, AWAITING TO BE TRANSFER FOR CABG TO AN HIGHER LEVEL OF CARE HOSPITAL, ENDORSED TO NEDA DAWN FOR LIAN.
--- NOTE | 2019-12-22 08:00 | NUR ---
received pt from fishing tackle repairer, a/o x 4, SR, RA sat well, suprapubic cath, HD patient, tolerates diet, v/s stable, no pain, pt turns and repositions by himself.
[2019-12-22] MEDS: BLOOD SUGAR DIAGNOSTIC 1 EACH STRIP VI SCH ×4 (08:27→22:18)
[2019-12-22] MEDS: VIT B CMPLX 3/FA/VIT C/BIOTIN 1 TAB TABLET PO SCH (08:34)
[2019-12-22] MEDS: PANTOPRAZOLE 40 MG TABLET.DR PO SCH (08:34)
[2019-12-22] MEDS: NYSTATIN (PYXIS) 500,000 UNIT/5 ML ORAL.SUSP PO SCH ×3 (08:34→17:08)
[2019-12-22] MEDS: ZINC SULFATE 220 MG CAPSULE PO SCH (08:34)
[2019-12-22] MEDS: ASCORBIC ACID 500 MG TABLET PO SCH ×2 (08:35→17:08)
[2019-12-22] MEDS: SEVELAMER CARBONATE 800 MG TABLET PO SCH ×3 (08:35→17:08)
[2019-12-22] MEDS: ASPIRIN EC 81 MG TABLET.DR PO SCH (08:35)
[2019-12-22] MEDS: PENTOXIFYLLINE 400 MG TABLET.SA PO SCH (08:35)
[2019-12-22] MEDS: GABAPENTIN 100 MG CAPSULE PO SCH ×2 (08:35→17:08)
[2019-12-22] MEDS: POLYETHYLENE GLYCOL 3350 17 GM POWD.PACK PO SCH (08:36)
[2019-12-22] MEDS: HEPARIN SODIUM, PORCINE 5000 UNITS/1 ML VIAL SQ SCH ×2 (08:37→21:56)
[2019-12-22] MEDS: LISINOPRIL (20MG) 20 MG TABLET PO SCH (08:37)
[2019-12-22] MEDS: METOPROLOL TARTRATE 25 MG TABLET PO SCH ×2 (08:38→17:00)
[2019-12-22] MEDS: INSULIN GLARGINE, 100 UNIT/ML CARTRIDGE SQ SCH ×2 (08:43→21:00)
[2019-12-22] MEDS: INSULIN REGULAR, HUMAN 100 UNIT/ML 3 ML VIAL SQ PRN (11:39)
--- NOTE | 2019-12-22 12:11 | NUR ---
pt is resting in the bed, a/o x4, v/s stable, no pain , having HD
--- NOTE | 2019-12-22 14:48 | NUR ---
OK to use midline on the Left arm per Dr Barron.
--- NOTE | 2019-12-22 16:35 | NUR ---
pt is resting in the bed, a/o x4, SR, RA saturating well, tolerates diet, 2 BMs, HD done, v/s stable, no pain, pt cleaned and changed.
[2019-12-22] MEDS: DEXTROSE 50%-WATER 50 ML DISP.SYRIN IV PRN (18:40)
--- NOTE | 2019-12-22 21:00 | NUR ---
Spoke to Dr. Lucia on the phone and received transfer orders to [facility].
[2019-12-22] MEDS: DOCUSATE SODIUM 100 MG CAPSULE PO SCH (21:56)
[2019-12-22] MEDS: ATORVASTATIN 40 MG TABLET PO SCH (21:56)
--- NOTE | 2019-12-22 22:15 | NUR ---
RN NOTE PT TRANSFERED FROM ICU VIA GURNEY ACCOMPANIED BY 1 TRANSPORTER AND UNIVERSAL WORKER ASSISTED LIVING. PT ALERT AND ORIENTED X 4. PT ON ROOM AIR AND WITHOUT SHORTNESS OF BREATH. RESPIRATIONS EVEN AND UNLABORED. WITH RIGHT SUBCLAVIAN CENTRAL VENOUS DIALYSIS CATHETER. ALSO WITH LEFT UPPER ARM MIDLINE. WITH LEFT UPPER ARM NON FUNCTIONAL AVF. NO COMPLAINTS OF PAIN OR DISCOMFORT AT THIS TIME. PT PUT ON TELE MONITOR SHOWING SINUS RHTHYM. PLAN OF CARE DISCUSSED WITH PATIENT. CALL LIGHT WITHIN REACH, SAFETY MEASURES IMPLEMENTED. WILL MONITOR PT.
--- NOTE | 2019-12-22 22:15 | NUR ---
Endorsed report and care to Douglas RUSHING RN for continuity of care. 2250- transported patient according to ACLS protocol. Patient tolerated well.
[2019-12-22] MEDS: MORPHINE SULFATE INJ 2 MG/ML DISP.SYRIN IV PRN (23:08)
[2019-12-23] VITALS: BP 134/72
[2019-12-23 04:00] VITALS: BP_SYST 122; BP_SYST 124; BP_DIAS 58; BP_DIAS 78
[2019-12-23 06:59] LABS: CALCIUM, SERUM 9.1 mg/dL (8.5-10.1); POTASSIUM 4.4 mmol/L (3.5-5.1)
[2019-12-23 07:00] LABS: CREATININE 9.1 mg/dL (0.6-1.3)
--- NOTE | 2019-12-23 07:30 | NUR ---
RN NOTES RECEIVED PT IN BED, ASLEEP, RESPONDS TO NAME AND TOUCH, AO X 3, ON ROOM AIR, NO SOB, RESPIRATION UNLABORED, SR ON MONITOR, DENIES PAIN OR DISCOMFORT,DEMIAN MIDLINE IN PLACE, FLUSHES WELL SITE CLEAR, OLD LEFT AV SHUNT NON FUNCTIONAL. RT HD CATH IN PLACE, CDI DRESSING. SEE NURSING FLOWSHEET FOR SKIN ISSUES. ON RENAL DIET. SUPRAPUBIC CATHETER IN PLACE DRAINING DARK COLORED URINE, ADEQUATE AMOUNT. INDEPENDENT OF BED MOBILITY. SAFETY MEASURES IN PLACE, BED LOW/LOCKED. CALL LIGHT WITHIN REACH. WILL CONT TO MONITOR.
[2019-12-23 08:00] VITALS: BP 114/57
[2019-12-23] MEDS: BLOOD SUGAR DIAGNOSTIC 1 EACH STRIP VI SCH ×4 (08:01→21:16)
[2019-12-23] MEDS: PIPERACILLIN /TAZOBACTAM 2.25 G in IV D5W 50 ML IV SCH ×2 (08:01→17:54)
[2019-12-23] MEDS: PANTOPRAZOLE 40 MG TABLET.DR PO SCH (08:01)
--- NOTE | 2019-12-23 08:01 | NUR ---
TD RN NOTES ACCUCHECK. BS 106 MG/DL. NO INSULIN COVERAGE.
[2019-12-23] MEDS: VIT B CMPLX 3/FA/VIT C/BIOTIN 1 TAB TABLET PO SCH (09:00)
[2019-12-23] MEDS: LISINOPRIL (20MG) 20 MG TABLET PO SCH (09:00)
[2019-12-23] MEDS: ASPIRIN EC 81 MG TABLET.DR PO SCH (09:00)
[2019-12-23] MEDS: ZINC SULFATE 220 MG CAPSULE PO SCH (09:00)
[2019-12-23] MEDS: POLYETHYLENE GLYCOL 3350 17 GM POWD.PACK PO SCH (09:00)
[2019-12-23] MEDS: INSULIN GLARGINE, 100 UNIT/ML CARTRIDGE SQ SCH ×2 (09:00→21:00)
[2019-12-23] MEDS: SEVELAMER CARBONATE 800 MG TABLET PO SCH ×3 (09:00→18:01)
[2019-12-23] MEDS: PENTOXIFYLLINE 400 MG TABLET.SA PO SCH (09:00)
[2019-12-23] MEDS: METOPROLOL TARTRATE 25 MG TABLET PO SCH ×2 (09:00→18:00)
[2019-12-23] MEDS: NYSTATIN (PYXIS) 500,000 UNIT/5 ML ORAL.SUSP PO SCH ×3 (09:00→17:59)
[2019-12-23] MEDS: HEPARIN SODIUM, PORCINE 5000 UNITS/1 ML VIAL SQ SCH ×2 (09:00→21:18)
[2019-12-23] MEDS: GABAPENTIN 100 MG CAPSULE PO SCH ×2 (09:00→18:00)
[2019-12-23] MEDS: ASCORBIC ACID 500 MG TABLET PO SCH ×2 (09:00→18:02)
--- NOTE | 2019-12-23 09:30 | NUR ---
TD RN NOTES PATIENT REFUSED TO TAKE MEDICATIONS UNLESS HE TALKS TO HIS DOCTOR FIRST. REFUSED TO HAVE CT CHEST DONE DESPITE EXPLAINING THE BENEFITS AND RISKS
--- NOTE | 2019-12-23 11:39 | NUR ---
RN NOTES PATIENT SEEN BY REED OR WIND INSTRUMENT REPAIRER, ACCORDING TO HER, PATIENT WAS EDUCATED AND INSTRUCTED ABOUT DIET RESTRICTION AND IMPORTANCE OF COMPLIANCE BUT STILL REFUSED TO LISTEN AND INSIST ON FOOD HE WANTS TO EAT. DR. ARTIS NOTIFIED.
[2019-12-23 12:00] VITALS: BP 137/51
--- NOTE | 2019-12-23 12:15 | NUR ---
RN NOTES PER DR HERMILA MALLORY, MAY HAVE REGULAR DIET.
[2019-12-23] MEDS: MORPHINE SULFATE INJ 2 MG/ML DISP.SYRIN IV PRN ×2 (15:19→19:56)
--- NOTE | 2019-12-23 15:19 | NUR ---
RN NOTES SPOKE WITH DR. FERGUSON, PER HIM, HE WILL REMOVE HD CATH TOMORROW. WILL GET CONSENT. ALL SUPPLIES AT BEDSIDE - GENERAL SURGICAL TRAY, DRESSINGS AND SYRINGES.
[2019-12-23 16:00] VITALS: BP 134/55
[2019-12-23] MEDS ORDERED: LIDOCAINE 1%-EPI 1:100,000 20 ML VIAL TP ONE (16:00)
--- NOTE | 2019-12-23 17:45 | NUR ---
RN NOTES HD COMPLETED, 1999 ML OUT.
--- NOTE | 2019-12-23 19:23 | NUR ---
RN NOTES ALL NEEDS MET AT THIS TIME. NOT IN ANY DISTRESS. RESTING COMFORTABLY, PM CARE DONE EARLIER. NO OTHER SIGNIFICANT CHANGE IN CONDITION. SAFETY MEASURES IN PLACE. CALL LIGHT WITHIN REACH ENDORSED TO NEXT SHIFT FOR LIAN. FOR REMOVAL OF HD CATH TOMORROW MORNING C/O DR. FERGUSON.
--- NOTE | 2019-12-23 19:25 | NUR ---
KRISTAN/RN notes Patient received, awake, A/O x4, denies any pain. In no acute distress. Breathing even and unlabored. No SOB. Sinus tachy on the monitor. Suprapubic cath in place, patent, draining well. IV sites with no S/S of infection, infiltration. Safety maintained, bed at the lowest locked position. Call light within reach. Will continue to monitor
[2019-12-23 20:00] VITALS: BP 110/72
[2019-12-23] MEDS: ATORVASTATIN 40 MG TABLET PO SCH (21:16)
[2019-12-23] MEDS: DOCUSATE SODIUM 100 MG CAPSULE PO SCH (21:16)
[2019-12-24] VITALS (7 sets, daily range): BP systolic 114–136; BP diastolic 56–78
[2019-12-24] MEDS: PIPERACILLIN /TAZOBACTAM 2.25 G in IV D5W 50 ML IV SCH ×3 (00:31→16:19)
--- NOTE | 2019-12-24 07:02 | NUR ---
KRISTAN/RN notes Patient remained in stable condition, no Significant change in condition noted. Awake, A/O x4, denies any pain. In no acute distress. Breathing even and unlabored. No SOB. NSR on the monitor. Suprapubic cath in place, patent, draining well with yellow color urine. IV sites with no S/S of infection, infiltration. Due meds given as ordered, treatments rendered, tolerated well. Needs attendant. Safety maintained, bed at the lowest locked position. Call light within reach. Will Endorse to AM shift nurse for LIAN.
[2019-12-24] MEDS: MORPHINE SULFATE INJ 2 MG/ML DISP.SYRIN IV PRN ×2 (07:36→11:34)
[2019-12-24 07:55] LABS: CALCIUM, SERUM 9.5 mg/dL (8.5-10.1); POTASSIUM 5.3 mmol/L (3.5-5.1)
[2019-12-24] MEDS: BLOOD SUGAR DIAGNOSTIC 1 EACH STRIP VI SCH ×4 (07:55→22:52)
[2019-12-24] MEDS: INSULIN REGULAR, HUMAN 100 UNIT/ML 3 ML VIAL SQ PRN ×3 (07:57→22:40)
[2019-12-24] MEDS: PANTOPRAZOLE 40 MG TABLET.DR PO SCH (07:58)
--- NOTE | 2019-12-24 08:00 | NUR ---
KRISTAN/RN NOTES DR. COLLAZO ARRIVED AT THE UNIT TO REMOVE THE RCW CATH. PROCEDURE WAS DONE AT BEDSIDE. PATIENT WAS ABLE TO TOLERATE THE PROCEDURE WELL. CONTINUES TO REMAIN IN STABLE CONDITION. WILL CONTINUE TO MONITOR CLOSELY.
[2019-12-24] MEDS: POLYETHYLENE GLYCOL 3350 17 GM POWD.PACK PO SCH (08:42)
[2019-12-24] MEDS: PENTOXIFYLLINE 400 MG TABLET.SA PO SCH (08:42)
[2019-12-24] MEDS: HYDROMORPHONE HCL 2 MG TABLET PO PRN (08:42)
[2019-12-24] MEDS: SEVELAMER CARBONATE 800 MG TABLET PO SCH ×3 (08:42→16:20)
[2019-12-24] MEDS: NYSTATIN (PYXIS) 500,000 UNIT/5 ML ORAL.SUSP PO SCH ×3 (08:42→16:20)
[2019-12-24] MEDS: ASPIRIN EC 81 MG TABLET.DR PO SCH (08:42)
[2019-12-24] MEDS: ASCORBIC ACID 500 MG TABLET PO SCH ×2 (08:42→16:20)
[2019-12-24] MEDS: METOPROLOL TARTRATE 25 MG TABLET PO SCH ×2 (08:43→16:20)
[2019-12-24] MEDS: GABAPENTIN 100 MG CAPSULE PO SCH ×2 (08:43→16:20)
[2019-12-24] MEDS: VIT B CMPLX 3/FA/VIT C/BIOTIN 1 TAB TABLET PO SCH (08:43)
[2019-12-24] MEDS: ZINC SULFATE 220 MG CAPSULE PO SCH (08:43)
[2019-12-24] MEDS: LISINOPRIL (20MG) 20 MG TABLET PO SCH (08:44)
[2019-12-24] MEDS: HEPARIN SODIUM, PORCINE 5000 UNITS/1 ML VIAL SQ SCH ×2 (08:52→22:52)
[2019-12-24] MEDS: INSULIN GLARGINE, 100 UNIT/ML CARTRIDGE SQ SCH ×2 (08:52→22:50)
[2019-12-24] MEDS ORDERED: SODIUM POLYSTYRENE SULFONATE 15 G/60 ML BOTTLE PO ONE (12:00)
[2019-12-24] MEDS: HYDROMORPHONE INJ 2 MG/ML DISP.SYRIN IV PRN (16:31)
--- NOTE | 2019-12-24 18:47 | NUR ---
KRISTAN/RN CLOSING NOTES PATIENT CONTINUES TO REMAIN IN STABLE CONDITION THROUGHOUT THE SHIFT. PROVIDED COMFORT AND SAFETY. PATIENT WAS ABLE TO TOLERATE MEALS AND MEDS WELL. PAIN MEDICATION GIVEN ORDERED. ALL NEEDS ANTICIPATED. KEPT CLEAN AND DRY. CALL LIGHT WITHIN REACHED. BED LOCKED AND IN LOWEST POSITION. SAFETY MAINTAINED. WILL CONTINUE TO MONITOR CLOSELY. ENDORSED TO PM NURSE FOR LIAN.
[2019-12-24] MEDS: DOCUSATE SODIUM 100 MG CAPSULE PO SCH (22:52)
[2019-12-24] MEDS: ATORVASTATIN 40 MG TABLET PO SCH (22:52)
[2019-12-25] VITALS (7 sets, daily range): BP systolic 102–140; BP diastolic 58–78
--- NOTE | 2019-12-25 04:58 | NUR ---
RN notes alert and oriented. verbally able to communicate needs. in bed resting comfortably. no complaint of pain or discomfort. no distress noted. breathing even and unlabored. room air well tolerated. kept clean and comfortable. will endorse to next shift for continuity of care.
[2019-12-25] MEDS: DEXTROSE 50%-WATER 50 ML DISP.SYRIN IV PRN (05:58)
[2019-12-25] MEDS: MORPHINE SULFATE INJ 2 MG/ML DISP.SYRIN IV PRN (05:58)
--- NOTE | 2019-12-25 06:00 | NUR ---
rn notes patient woke up trembling and very diaphoretic. Vital signs checked, with elevated heart rate 102bpm and low bp of 102/64. Checked sugar level 65. noted patient started to vomit x 3. Administered dextrose, gave bed bath. patient asked for pain medication. administered morphine sulfate 1 mg, with relief. checked blood sugar after 30 minutes. it went up to 143. Patient complained of severe pain in the arms. diluadid. administered, with relief. will endorse to next shift for continuity of care.
[2019-12-25] MEDS: HYDROMORPHONE INJ 2 MG/ML DISP.SYRIN IV PRN ×4 (06:24→22:48)
[2019-12-25 07:24] LABS: BASOPHILS # (AUTO) 0.1 /CMM (0.0-0.2); BASOPHILS % (AUTO) 1.2 % (0.0-2.0); EOSINOPHILS % (AUTO) 2.2 % (0.0-6.0); HEMATOCRIT 30 % (39-51); LYMPHOCYTES % (AUTO) 11.4 % (20.0-44.0); MEAN CORPUSCULAR HGB CONC 31 g/dl (31.0-36.0); MEAN CORPUSCULAR VOLUME 75 fL (80-96); MONOCYTES # (AUTO) 0.8 /CMM (0.1-1.30); MONOCYTES % (AUTO) 9.6 % (2.0-12.0); NEUTROPHILS # (AUTO) 6.5 /CMM (1.8-8.9); NEUTROPHILS % (AUTO) 75.6 % (43.0-81.0); PLATELET COUNT (AUTO) 346 /CMM (150-450); RED BLOOD CELL COUNT(AUTO) 3.94 MIL/uL (4.5-6.0); WHITE BLOOD COUNT (AUTO) 8.6 K/uL (4.3-11.0)
--- NOTE | 2019-12-25 07:45 | NUR ---
TELE TD RN OPENING NOTE RECEIVED PATIENT IN BED RESTING COMFORTABLY. PATIENT IN NO ACUTE DISTRESS. NO SOB NOTED. PATIENT BREATHING IS EVEN AND UNLABORED. PATIENT IN NO PAIN AT THIS TIME. PATIENT BLOOD SUGAR IS 103. NO INSULIN COVERAGE NEEDED, PER PROTOCOL. PATIENT ON CARDIAC MONITORING READING SINUS RHYTHM HR 92. PATIENT BED ALARM IS ON. SAFETY PRECAUTIONS IN PLACE. PATIENT BED IS LOCKED AND IN LOWEST POSITION. CALL LIGHT WITHIN REACH. WILL CONTINUE TO MONITOR.
[2019-12-25 07:58] LABS: CALCIUM, SERUM 9.4 mg/dL (8.5-10.1); POTASSIUM 4.7 mmol/L (3.5-5.1)
[2019-12-25 08:10] LABS: CREATININE 10.4 mg/dL (0.6-1.3)
--- NOTE | 2019-12-25 08:13 | NUR ---
KRISTAN RN, BUN 31 CREATINE 10.4 was notified at this time no orders obtained
[2019-12-25] MEDS: HEPARIN SODIUM, PORCINE 5000 UNITS/1 ML VIAL SQ SCH (08:54)
[2019-12-25] MEDS: BLOOD SUGAR DIAGNOSTIC 1 EACH STRIP VI SCH ×4 (09:00→22:45)
[2019-12-25] MEDS: POLYETHYLENE GLYCOL 3350 17 GM POWD.PACK PO SCH (09:00)
[2019-12-25] MEDS: INSULIN GLARGINE, 100 UNIT/ML CARTRIDGE SQ SCH ×2 (09:00→21:00)
[2019-12-25] MEDS: SEVELAMER CARBONATE 800 MG TABLET PO SCH ×3 (09:00→16:57)
[2019-12-25] MEDS: ASPIRIN EC 81 MG TABLET.DR PO SCH (09:00)
[2019-12-25] MEDS: NYSTATIN (PYXIS) 500,000 UNIT/5 ML ORAL.SUSP PO SCH ×3 (09:00→16:56)
--- NOTE | 2019-12-25 09:00 | NUR ---
TELE TD RN NOTE PATIENT CRITICAL LAB VALUE CREATININE 10.4, MARICARMEN WRIGHT MADE AWARE. NO NEW ORDERS AT THIS TIME.
[2019-12-25] MEDS: LISINOPRIL (20MG) 20 MG TABLET PO SCH (09:01)
[2019-12-25] MEDS: VIT B CMPLX 3/FA/VIT C/BIOTIN 1 TAB TABLET PO SCH (09:01)
[2019-12-25] MEDS: GABAPENTIN 100 MG CAPSULE PO SCH ×2 (09:01→16:57)
[2019-12-25] MEDS: PENTOXIFYLLINE 400 MG TABLET.SA PO SCH (09:01)
[2019-12-25] MEDS: ASCORBIC ACID 500 MG TABLET PO SCH ×2 (09:01→16:57)
[2019-12-25] MEDS: ZINC SULFATE 220 MG CAPSULE PO SCH (09:03)
[2019-12-25] MEDS: METOPROLOL TARTRATE 25 MG TABLET PO SCH ×2 (09:03→16:57)
[2019-12-25] MEDS: PANTOPRAZOLE 40 MG TABLET.DR PO SCH (09:03)
--- NOTE | 2019-12-25 09:04 | NUR ---
TELE TD RN NOTE PATIENT BLOOD SUGAR IS 103. HELD INSULIN LANTUS 20 UNITS FOR DECREASING BLOOD SUGAR AND PATIENT HAS DECREASED APPETITE.
[2019-12-25] MEDS: INSULIN REGULAR, HUMAN 100 UNIT/ML 3 ML VIAL SQ PRN ×2 (12:19→16:55)
--- NOTE | 2019-12-25 12:19 | NUR ---
TELE TD RN NOTE PATIENT BLOOD SUGAR 155, PATIENT REFUSING 2 UNITS REGULAR INSULIN PRN. EDUCATED RISKS VS BENEFITS. PATIENT CONTINUED TO REFUSE.
--- NOTE | 2019-12-25 16:54 | NUR ---
TELE TD RN NOTE PATIENT BLOOD SUGAR IS 198. PATIENT IS REFUSING INSULIN COVERAGE OF 3 UNITS PRN. EDUCATED RISKS VS BENEFITS. PATIENT CONTINUED TO REFUSE.
--- NOTE | 2019-12-25 19:10 | NUR ---
TELE TD RN CLOSING NOTE PATIENT IN BED RESTING COMFORTABLY. PATIENT IN NO ACUTE DISTRESS. NO SOB NOTED. PATIENT BREATHING IS EVEN AND UNLABORED. PATIENT IN NO PAIN AT THIS TIME. PATIENT ON CARDIAC MONITORING READING SINUS RHYTHM HR 90 WITH FIRST DEGREE AV BLOCK. PATIENT KEPT CLEAN, DRY AND COMFORTABLE THROUGHOUT MY SHIFT. NEEDS AND CONCERNS ADDRESSED. PATIENT BED ALARM IS ON. SAFETY PRECAUTIONS IN PLACE. PATIENT BED IS LOCKED AND IN LOWEST POSITION. CALL LIGHT WITHIN REACH. WILL ENDORSE CARE TO PM SHIFT FOR LIAN.
[2019-12-25] MEDS: DOCUSATE SODIUM 100 MG CAPSULE PO SCH (22:00)
[2019-12-25] MEDS: ATORVASTATIN 40 MG TABLET PO SCH (22:00)
[2019-12-26] VITALS: BP 123/47
[2019-12-26 04:00] VITALS: BP 136/55
--- NOTE | 2019-12-26 07:18 | NUR ---
rn notes sleeping comfortably in bed with no apparent distress. breathing even and unlabored. room air tolerating well. refused all insulin and all medications except pain pill. dilaudid administered for complained of middle finger necrotic tissue, with relief. patient seen sleeping soundly after administering pain medication. kept clean and dry. will endorse to next shift for continuity of care
--- NOTE | 2019-12-26 07:30 | NUR ---
KRISTAN RN NOTES RECEIVED PT IN BED, ASLEEP, RESPONDS TO NAME AND TOUCH, AO X 3, ON ROOM AIR, NO SOB, RESPIRATION UNLABORED, SR ON MONITOR, DENIES PAIN OR DISCOMFORT,DEMIAN MIDLINE IN PLACE, FLUSHES WELL SITE CLEAR, OLD LEFT AV SHUNT NON FUNCTIONAL. RT HD CATH REMOVED 12/24/19, SEE NURSING FLOWSHEET FOR SKIN ISSUES. ON REGULAR DIET. SUPRAPUBIC CATHETER IN PLACE DRAINING DARK COLORED URINE, ADEQUATE AMOUNT. INDEPENDENT OF BED MOBILITY. SAFETY MEASURES IN PLACE, BED LOW/LOCKED. CALL LIGHT WITHIN REACH. WILL CONT TO MONITOR.
[2019-12-26 08:00] VITALS: BP 134/59
[2019-12-26] MEDS: PANTOPRAZOLE 40 MG TABLET.DR PO SCH (08:00)
[2019-12-26] MEDS: BLOOD SUGAR DIAGNOSTIC 1 EACH STRIP VI SCH ×5 (08:00→22:00)
--- NOTE | 2019-12-26 08:05 | NUR ---
TD RN NOTES ACCUCHECK. BS 204 MG/DL. 6 UNITS HUM R GIVEN SUBCUTANEOUSLY. REFUSE LANTUS INSULIN
[2019-12-26] MEDS: INSULIN GLARGINE, 100 UNIT/ML CARTRIDGE SQ SCH ×2 (09:00→21:56)
[2019-12-26] MEDS: POLYETHYLENE GLYCOL 3350 17 GM POWD.PACK PO SCH (09:02)
[2019-12-26] MEDS: NYSTATIN (PYXIS) 500,000 UNIT/5 ML ORAL.SUSP PO SCH ×3 (09:02→16:31)
[2019-12-26] MEDS: PENTOXIFYLLINE 400 MG TABLET.SA PO SCH (09:03)
[2019-12-26] MEDS: GABAPENTIN 100 MG CAPSULE PO SCH ×2 (09:03→16:32)
[2019-12-26] MEDS: ASPIRIN EC 81 MG TABLET.DR PO SCH (09:03)
[2019-12-26] MEDS: ZINC SULFATE 220 MG CAPSULE PO SCH (09:03)
[2019-12-26] MEDS: SEVELAMER CARBONATE 800 MG TABLET PO SCH ×3 (09:03→16:33)
[2019-12-26] MEDS: VIT B CMPLX 3/FA/VIT C/BIOTIN 1 TAB TABLET PO SCH (09:03)
[2019-12-26] MEDS: METOPROLOL TARTRATE 25 MG TABLET PO SCH ×2 (09:04→16:34)
[2019-12-26] MEDS: LISINOPRIL (20MG) 20 MG TABLET PO SCH (09:04)
[2019-12-26] MEDS: ASCORBIC ACID 500 MG TABLET PO SCH ×2 (09:06→16:33)
[2019-12-26] MEDS: INSULIN REGULAR, HUMAN 100 UNIT/ML 3 ML VIAL SQ PRN (09:09)
[2019-12-26 09:14] LABS: CALCIUM, SERUM 9.3 mg/dL (8.5-10.1); POTASSIUM 5.7 mmol/L (3.5-5.1)
[2019-12-26 09:17] LABS: BASOPHILS # (AUTO) 0.1 /CMM (0.0-0.2); BASOPHILS % (AUTO) 1.2 % (0.0-2.0); EOSINOPHILS % (AUTO) 2.8 % (0.0-6.0); HEMATOCRIT 29 % (39-51); HEMOGLOBIN 8.4 g/dL (13.5-17.5); LYMPHOCYTES # (AUTO) 1.1 /CMM (0.8-4.8); LYMPHOCYTES % (AUTO) 12.5 % (20.0-44.0); MEAN CORPUSCULAR HGB CONC 29 g/dl (31.0-36.0); MEAN CORPUSCULAR VOLUME 76 fL (80-96); MONOCYTES # (AUTO) 0.9 /CMM (0.1-1.30); NEUTROPHILS # (AUTO) 6.3 /CMM (1.8-8.9); NEUTROPHILS % (AUTO) 72.5 % (43.0-81.0); PLATELET COUNT (AUTO) 392 /CMM (150-450); RED BLOOD CELL COUNT(AUTO) 3.79 MIL/uL (4.5-6.0); WHITE BLOOD COUNT (AUTO) 8.7 K/uL (4.3-11.0)
[2019-12-26] MEDS: HYDROMORPHONE INJ 2 MG/ML DISP.SYRIN IV PRN ×2 (09:22→19:01)
[2019-12-26 09:33] LABS: CREATININE 12.8 mg/dL (0.6-1.3)
--- NOTE | 2019-12-26 09:45 | NUR ---
RN NOTES PATIENT REFUSED TO HAVE CT CHEST SCAN. RUFINA HERNADEZ NP AWARE.
[2019-12-26] MEDS ORDERED: DEXT50DI8 IV (10:24)
[2019-12-26] MEDS ORDERED: ATOR40TA PO (10:24)
[2019-12-26] MEDS ORDERED: METO25TA20 PO (10:24)
[2019-12-26] MEDS ORDERED: Metoprolol Tartrate Inj IVP (10:24)
[2019-12-26] MEDS ORDERED: *INS REG SQ (10:24)
[2019-12-26] MEDS ORDERED: HYDR2DIS IV (10:24)
[2019-12-26] MEDS ORDERED: Blood Sugar Diagnostic VI (10:24)
[2019-12-26] MEDS ORDERED: ONDA4VIA23 IVP (10:25)
[2019-12-26] MEDS ORDERED: VANC500P5 IV (10:25)
[2019-12-26] MEDS ORDERED: NYST5ORA PO (10:25)
[2019-12-26 12:00] VITALS: BP 107/62
--- NOTE | 2019-12-26 12:10 | NUR ---
RN NOTES CASE MANAGEMENT, BRIE, NOTIFIED ABOUT PATIENT WITH DISCHARGE/TRANSFER ORDER TO [facility] FOR HIGHER LEVEL OF CARE. DR. QUINTANILLA ADMITTING MD BUT NO BED AVAILABLE AT THIS TIME
[2019-12-26 16:00] VITALS: BP 122/63
[2019-12-26] MEDS ORDERED: SODIUM POLYSTYRENE SULFONATE 15 G/60 ML BOTTLE PO ONE (16:00)
--- NOTE | 2019-12-26 19:00 | NUR ---
HEMODIALYSIS CATHETER INSERTION Sales And Service Consultant: [facility] Andres Tapia NP DIALYSIS 13F 30CM Patient has order to insert HD catheter. Informed consent is signed and in chart. Insertion site determined to be right femoral vein. Patient was prepped using sterile technique with chlorhexidine. Patient was covered with a sterile drape and i donned a sterile gown. The insertion site was anesthetized with 1% lidocaine. Needle inserted under ultrasound guidance. Guidewire inserted through needle and needle removed. Small tanisha made at insertion site of approximately 2 mm. Dilator inserted over guidewire then removed. Catheter inserted fully over guidewire. Guidewire removed. Blood return at both ports. Caps placed on each port. Catheter secured with 2 sutures. Biopatch placed and covered with tegaderm. No s/s of complication. Tolerated well with minimal blood loss. Ebl 3ml.
--- NOTE | 2019-12-26 19:25 | NUR ---
RN NOTES ALL NEEDS MET AT THIS TIME. NOT IN ANY DISTRESS. RESTING COMFORTABLY, PM CARE DONE EARLIER. NO OTHER SIGNIFICANT CHANGE IN CONDITION. SAFETY MEASURES IN PLACE. CALL LIGHT WITHIN REACH ENDORSED TO NEXT SHIFT FOR LIAN. S/P HD CATH PLACEMENT, RIGHT GROIN BY JAMILA WRIGHT. NO BLEEDING. CDI DRESSING.
--- NOTE | 2019-12-26 19:25 | NUR ---
CAR SPOTTER NOTES, RECEIVED PATIENT IN BED FALLING ASLEEP, BUT A/O X4 ABLE TO VERBALIZED NEEDS AND CONCERNS, BREATHING EVEN AND UNLABORED NO SOB/ACUTE DISTRESS NOTED AT THIS TIME NSR IN TELE MONITOR WITH HR 90S AT THIS TIME, DEMIAN MIDLINE IN PLACED PATENT AND INTACT, SUPRAPUBIC SPRING CATH IN PLACE, MINIMAL URINE NOTED, ALL SAFETY MEASURES IN PLACED, WELL ISOLATION, BED LOCKED AND LOW POSITION, SIDE RAILS UP, CALL LIGHT WITHIN REACH, WILL CONTINUE TO MONITOR CLOSELY, PATIENT WILL BE TRANSFER TO [facility] FOR CABG PROCEDURE, LAMP REPLACER DR QUINTANILLA WILL BE TAKING CARE OF THE PATIENT OVER THERE, AWAITING FOR CALL FROM HOSPITAL FOR ROOM NUMBER.
[2019-12-26 20:00] VITALS: BP_SYST 129; BP_SYST 142; BP_DIAS 52; BP_DIAS 76
--- NOTE | 2019-12-26 20:35 | NUR ---
2034 [facility] MANA[facility] PETERSON CALLED AND SAID PATIENT WILL BE ADMITTED IN ROOM 5105. NEDA GUTIERREZ MADE AWARE.
--- NOTE | 2019-12-26 20:50 | NUR ---
2049 NICOLASA ESTRADA SUP CALLED AGAIN AND SAID PATIENT WILL BE ADMITTED TO ROOM 7107 DUE TO DIALYSIS ACCOMMODATION.
--- NOTE | 2019-12-26 21:00 | NUR ---
2100 CALLED [facility] FOR TRANSPORT SPOKE WITH MATT, PER HER PATIENT WILL BE REFERRED TO CALL THE CARE DUE TO INSURANCE. VINCENT SAFETY BELT INSTALLER NOTIFIED OF TRANSPORTATION ISSUE AND SAID SO WILL PAY FOR TRANSPORTATION. CALLED MATT AGAIN AND NOTIFIED HER THAT SO WILL PAY FOR TRANSPORT. MOTION PICTURE PROJECTIONIST APPRENTICE JEVON AT THE STATION AND MADE AWARE OF WHAT SAFETY BELT INSTALLER SAID REGARDING PAYMENT. TRIP NUMBER [id number] OBTAINED. ETA AT 2570. NEDA GUTIERREZ MADE AWARE.
[2019-12-26] MEDS: *INSULIN REGULAR(HUMULIN R)HUM 100 UNIT/ML VIAL SQ PRN (21:58)
[2019-12-26] MEDS: DOCUSATE SODIUM 100 MG CAPSULE PO SCH (21:58)
[2019-12-26] MEDS: ATORVASTATIN 40 MG TABLET PO SCH (21:59)
--- NOTE | 2019-12-26 22:30 | NUR ---
RN NOTES REPORT GIVEN TO Juany PARK RN AT [facility] ABOUT THE PATENT. PATIENT WILL BE PICKED UP VIA AMBULANCE AT 0030. PATIENT AWARE. ATTEMPT TO CALL EMERGENCY CONTACT NUMBER X3, NUMBER WAS DISCONNECTED.
[2019-12-27] VITALS: BP_SYST 127; BP_SYST 142; BP_DIAS 62; BP_DIAS 76
--- NOTE | 2019-12-27 00:22 | NUR ---
[address] FROM [facility] CALLED AND SAID THEIR ETA IS CHANGED TO 0435 DUE TO MEDIC ISSUE. BRENDA RED NOTIFIED.
--- NOTE | 2019-12-27 01:30 | NUR ---
RN NOTES SPOKE TO ELY RED AT [facility] ABOUT PATIENT'S DISCHARGE TIME AT 0430.
[2019-12-27 04:00] VITALS: BP 127/62
--- NOTE | 2019-12-27 04:30 | NUR ---
2750 MATT FROM [facility] CALLED AGAIN TO NOTIFY US THAT TELEGRAPH REPEATER INSTALLER TIME WILL BE AT 0830 DUE EMERGENCY SITUATION. NEDA MCCRACKEN NOTIFIED.
--- NOTE | 2019-12-27 05:30 | NUR ---
RN NOTES SPOKE TO TRUDY RED AT [facility] ABOUT PATIENT'S DISCHARGE TIME AT 0830.
[2019-12-27] MEDS: HYDROMORPHONE INJ 2 MG/ML DISP.SYRIN IV PRN (06:29)
--- NOTE | 2019-12-27 07:07 | NUR ---
RN NOTES PATIENT IN STABLE CONDITION RESTING COMFORTABLY. BREATHING NORMAL NO SOB NOTED. VITAL SIGNS WNL. SKIN WARM AND DRY TO TOUCH SAFETY MEASURES IN PLACE. CALL LIGHT WITHIN REACH. BED IN LOW AND LOCKED POSITION. PATIENT ENDORSE TO DAY SHIFT.
[2019-12-27 07:11] LABS: CALCIUM, SERUM 9.4 mg/dL (8.5-10.1); POTASSIUM 4.9 mmol/L (3.5-5.1)
[2019-12-27 07:15] LABS: CREATININE 14.4 mg/dL (0.6-1.3)
--- NOTE | 2019-12-27 07:30 | NUR ---
LOCAL BULK DRIVER NOTES RECEIVED PT IN BED, ASLEEP, RESPONDS TO NAME AND TOUCH, AO X 3, ON ROOM AIR, NO SOB, RESPIRATION UNLABORED, SR ON MONITOR, DENIES PAIN OR DISCOMFORT,DEMIAN MIDLINE IN PLACE, FLUSHES WELL SITE CLEAR, OLD LEFT AV SHUNT NON FUNCTIONAL. HD CATH IN PLACE TO LEFT GROIN AREA, CDI DRESSING PLACED ON 12/26/19. SEE NURSING FLOWSHEET FOR SKIN ISSUES. ON REGULAR DIET. SUPRAPUBIC CATHETER IN PLACE DRAINING DARK COLORED URINE, ADEQUATE AMOUNT. INDEPENDENT OF BED MOBILITY. SAFETY MEASURES IN PLACE, BED LOW/LOCKED. CALL LIGHT WITHIN REACH. WILL CONT TO MONITOR.
[2019-12-27 08:00] VITALS: BP 141/80
[2019-12-27] MEDS: PANTOPRAZOLE 40 MG TABLET.DR PO SCH (08:11)
[2019-12-27] MEDS: BLOOD SUGAR DIAGNOSTIC 1 EACH STRIP VI SCH (08:12)
[2019-12-27] MEDS: INSULIN REGULAR, HUMAN 100 UNIT/ML 3 ML VIAL SQ PRN (08:16)
--- NOTE | 2019-12-27 08:48 | NUR ---
ENRICHMENT TEACHER NOTES PATIENT PICKED UP BY 2 AMBULANCE CREW TODAY GOING TO [facility] FOR HIGHER LEVEL OF CARE. PROVIDED DC PAPERS, INSTRUCTIONS, HEALTH TEACHINGS, MED RECON LIST AND CD OF IMAGES. LEFT UPPER ARM MIDLINE INTACT, LEFT GROIN HD CATH ACCESS INTACT, PATIENT REFUSE TO HAVE PICTURES TAKEN OF SKIN ISSUES AT THIS TIME, DESPITE EXPLAINING HOSPITAL POLICY, PRESCRIBED WOUND CARE DONE, ALL BELONGINGS CHECKED AND RETURNED. ALL PAPERWORKS SIGNED. REPORT GIVEN TO FACILITY STAFF EARLIER.
== END 2019-12-27 08:48 | disposition short-term general hospital (02) | DRG 721 ==
LOC: ER 13:36 → MEDSG1 16:28 → ICU 17:02 → TELE1 12-18 09:25 → ICU 12-21 09:30 → TELE-TD 12-22 22:46 → TELE1 12-27 04:49
PROVIDERS: ADMIT Internal Medicine; ATTEND Nurse Practitioner Acute Care
PROC: 4A023N7 Measurement of Cardiac Sampling and Pressure, Left Heart, Percutaneous Approach (ICD-10-PCS; principal; 2019-12-21)
PROC: B41FYZZ Fluoroscopy of Right Lower Extremity Arteries using Other Contrast (ICD-10-PCS; principal; 2019-12-21)
PROC: B211YZZ Fluoroscopy of Multiple Coronary Arteries using Other Contrast (ICD-10-PCS; principal; 2019-12-21)
PROC: 5A1D70Z Performance of Urinary Filtration, Intermittent, Less than 6 Hours Per Day (ICD-10-PCS; principal; 2019-12-21)
PROC: 05H633Z Insertion of Infusion Device into Left Subclavian Vein, Percutaneous Approach (ICD-10-PCS; 2019-12-22)
PROC: B547ZZA Ultrasonography of Left Subclavian Vein, Guidance (ICD-10-PCS; 2019-12-22)
PROC: 05PYX3Z Removal of Infusion Device from Upper Vein, External Approach (ICD-10-PCS; 2019-12-24)
PROC: 06HY33Z Insertion of Infusion Device into Lower Vein, Percutaneous Approach (ICD-10-PCS; 2019-12-26)
DX: T80.211A Bloodstream infection due to central venous catheter, initial encounter (principal); I21.4 Non-ST elevation (NSTEMI) myocardial infarction; A41.02 Sepsis due to Methicillin resistant Staphylococcus aureus; E43 Unspecified severe protein-calorie malnutrition; G93.41 Metabolic encephalopathy; I13.2 Hypertensive heart and chronic kidney disease with heart failure and with stage 5 chronic kidney disease, or end stage renal disease; I96 Gangrene, not elsewhere classified; B37.0 Candidal stomatitis; E11.22 Type 2 diabetes mellitus with diabetic chronic kidney disease; E11.40 Type 2 diabetes mellitus with diabetic neuropathy, unspecified; Z99.2 Dependence on renal dialysis; N18.6 End stage renal disease; E87.5 Hyperkalemia; D63.8 Anemia in other chronic diseases classified elsewhere; Z91.15 Patient's noncompliance with renal dialysis; I25.5 Ischemic cardiomyopathy; Y84.8 Other medical procedures as the cause of abnormal reaction of the patient, or of later complication, without mention of misadventure at the time of the procedure; Y92.129 Unspecified place in nursing home as the place of occurrence of the external cause; G89.4 Chronic pain syndrome; F17.210 Nicotine dependence, cigarettes, uncomplicated; I25.10 Atherosclerotic heart disease of native coronary artery without angina pectoris; I77.810 Thoracic aortic ectasia; N25.81 Secondary hyperparathyroidism of renal origin; Z79.4 Long term (current) use of insulin; Z79.82 Long term (current) use of aspirin; I50.22 Chronic systolic (congestive) heart failure; D63.1 Anemia in chronic kidney disease; E88.09 Other disorders of plasma-protein metabolism, not elsewhere classified; M62.50 Muscle wasting and atrophy, not elsewhere classified, unspecified site; Z68.22 Body mass index [BMI] 22.0-22.9, adult; N25.0 Renal osteodystrophy; E11.621 Type 2 diabetes mellitus with foot ulcer; L97.429 Non-pressure chronic ulcer of left heel and midfoot with unspecified severity; E11.69 Type 2 diabetes mellitus with other specified complication; M86.8X4 Other osteomyelitis, hand; E11.52 Type 2 diabetes mellitus with diabetic peripheral angiopathy with gangrene; I44.0 Atrioventricular block, first degree; R65.20 Severe sepsis without septic shock
CPT/HCPCS: 33222; 36410; 36415; 70450-TC; 71045-TC; 73140-TC; 75574; 80048-TC; 80053-TC; 80061-TC; 80076-TC; 80202-TC; 81000-TC; 82962-TC; 83605-TC; 83735-TC; 83880; 84100-TC; 84484-TC; 85025-TC; 85610-TC; 85730-TC; 86704; 86803; 87040-TC; 87081-TC; 87086-TC; 87186-TC; 90935-TC; 93307-TC; 93880-TC; 94799-TC; 97530-TC; A6403; C1769; C1887; C1894; G0378; J1170; J1644; J1815; J2250; J2270; J2405; J2543; J3010; J3370; J3490; J7030; J7040; J7050; J7060; Q9967